=== PATIENT | female | born 1955 | race Caucasian/White ===

== ENCOUNTER 2016-08-28 03:38 | Inpatient (IN) | payer BC ==
[2016-08-28] MEDS ORDERED: morphine CARPU-JECT 4 MG/1 ML DISP.SYRIN IVPUSH ONE (03:48)
[2016-08-28] MEDS ORDERED: SODIUM CHLORIDE 1,000 ML IV STA (03:48)
[2016-08-28] MEDS ORDERED: ONDANSETRON 4 MG/2 ML VIAL IVPB ONE (03:48)
--- NOTE | 2016-08-28 03:48 | PDOC ---
[id number] No Limitations - History of Present Illness Initial Comments: 08/28/16 04:01 The patient is a 60 year old female, with no significant past past medical history, who presents to the emergency department complaining of sudden onset of abdominal pain approximately 90 minutes ago. The patient reports she was sleeping, when suddenly she was woken up by a sharp abdominal pain. She currently rates her pain as a 10/10. The patient reports no alleviating factors. The patient reports associated nausea and active vomiting. She denies any associated diarrhea or constipation. The patient denies any fever, chills, cough, headache, or dizziness. The patient denies any dysuria, hematuria, frequency, or urgency. The patient denies any recent travel or sick contacts. Allergies: None reported. Past Surgical History: Total hip replacement(left hip), abdominal hernia removal , ovaries removed Social History: Former smoker(20 cigarettes per day). Social ETOH use. Denies drug use. <Francisco Moya - Last Filed: 08/28/16 04:05> - General History Source: Patient <PhillipPorter fallon - Last Filed: 09/01/16 19:23> - General Chief Complaint: Pain Stated Complaint: ABDOMINAL PAIN Time Seen by Provider: 08/28/16 03:48 Past History <Francisco Moya - Last Filed: 08/28/16 04:05> - Immunization History Td Vaccination: Yes Immunization Up to Date: Yes - Psycho/Social/Smoking Cessation Hx Anxiety: No Suicidal Ideation: No Smoking Status: No Smoking History: Former smoker Have you smoked in the past 12 months: Yes Number of Cigarettes Smoked Daily: 20 Information on smoking cessation initiated: No Hx Alcohol Use: (social) Drug/Substance Use Hx: No <Porter Moore - Last Filed: 09/01/16 19:23> - Past Medical History Allergies/Adverse Reactions: Allergies Allergy/AdvReac Type Severity Reaction Status Date / Time coconut oil Allergy Verified 08/31/16 14:27 Home Medications: Ambulatory Orders Levofloxacin 750 mg PO DAILY #6 tablet 09/01/16 Metronidazole [Flagyl -] 500 mg PO TID #18 tablet 09/01/16 Nystatin Oral Suspension - [Nystatin Oral Susp 582546 Units/5 ML -] 500,000 units PO Q6H #28 cup 09/01/16 Review of Systems - Review of Systems Able to Perform ROS?: Yes Comments:: 08/28/16 04:01 CONSTITUTIONAL: Absent: fever, no chills, no fatigue EYES: Absent: visual changes ENT: Absent: ear pain, no sore throat CARDIOVASCULAR: Absent: chest pain, no palpitations RESPIRATORY: Absent: cough, no SOB GI: Present: +abdominal pain, +nausea, +vomiting Absent: no constipation, no diarrhea GENITOURINARY: Absent: dysuria, no frequency, no hematuria MUSCULOSKELETAL: Absent: back pain, no arthralgia, no myalgia SKIN: Absent: rash NEURO: Absent: headache <GriffinKennediomilsy - Last Filed: 08/28/16 04:05> *Physical Exam - Vital Signs Last Vital Signs Temp Pulse Resp BP Pulse Ox 97.2 F L 38 L 14 132/98 100 08/28/16 03:46 08/28/16 03:46 08/28/16 03:46 08/28/16 03:46 08/28/16 03:46 - Physical Exam Comments: 08/28/16 04:02 GENERAL: Well-appearing, well-nourished. Moderate distress. Active emesis. HEENT: Normocephalic, atraumatic. PERRL, EOM intact. CARDIOVASCULAR: Normal S1, S2. Bradycardic. Regular rhythm. PULMONARY: Clear to auscultation bilaterally. ABDOMINAL: Diffuse tenderness to the periumbilical and suprapubic regions, with mild guarding but no rebound. Soft. Non-distended. No organomegaly. Normoactive bowel sounds. EXTREMITIES: Normal ROM in all four extremities. No gross deformities. SKIN: Warm, dry. No rash NEUROLOGICAL: No focal neurological deficits. <Kennedi Moyaomarun - Last Filed: 08/28/16 04:05> - Vital Signs Last Vital Signs Temp Pulse Resp BP Pulse Ox 38 L 14 132/98 100 08/28/16 03:46 08/28/16 03:46 08/28/16 03:46 08/28/16 03:46 <Porter Moore - Last Filed: 09/01/16 19:23> Heart Score/ECG Review - ECG Impressions Comment:: 08/28/16 04:06 Vent. Rate: 50 bpm IMPRESSION: Sinus bradycardia. <Francisco Moya - Last Filed: 08/28/16 04:05> ED Treatment Course - LABORATORY CBC & Chemistry Diagram: 08/28/16 04:00 08/28/16 04:00 <Francisco Moya - Last Filed: 08/28/16 04:05> - LABORATORY CBC & Chemistry Diagram: 09/01/16 06:30 09/01/16 06:30 <Porter Moore - Last Filed: 09/01/16 19:23> Medical Decision Making - Medical Decision Making 09/01/16 19:22 Dr. Moore: The scribe's documentation has been prepared under my direction and personally reviewed by me in its entirery. I confirm that the note above accurately reflects all work, treatment, procedures, and medical decision making performed by me. <Porter Moore - Last Filed: 09/01/16 19:23> *DC/Admit/Observation/Transfer - Attestations Scribe Attestion: 08/28/16 04:04 Documentation prepared by Francisco Moya, acting as bio medical technician for Porter Moore DO. <Francisco Moya - Last Filed: 08/28/16 04:05> <Porter Moore - Last Filed: 09/01/16 19:23> Diagnosis at time of Disposition: Volvulus of ascending colon - Discharge Dispostion Disposition: HOME Condition at time of disposition: Stable - Prescriptions - Referrals
[2016-08-28] MEDS ORDERED: morphine CARPU-JECT 4 MG/1 ML DISP.SYRIN ONE (03:50)
[2016-08-28] MEDS ORDERED: ONDANSETRON 4 MG/2 ML VIAL ONE (03:50)
[2016-08-28 04:08] LABS: BASOPHIL 1.2 % (0-2.0); EOSINOPHIL 1.1 % (0-4.5); MCH 33.4 pg (25.7-33.7); MCHC 33.6 g/dl (32.0-36.0); MEAN CELL VOLUME 99.3 fl (80-96); MEAN PLT VOLUME 8.7 fl (7.5-11.1); PLATELET COUNT 289 K/MM3 (134-434); RDW 13.2 % (11.6-15.6); WHITE BLOOD COUNT 9.9 K/mm3 (4.0-10.0)
[2016-08-28] MEDS ORDERED: METOCLOPRAMIDE HCL INJECTION 10 MG/2 ML VIAL IVPUSH ONE (04:14)
[2016-08-28] MEDS ORDERED: METOCLOPRAMIDE HCL INJECTION 10 MG/2 ML VIAL ONE (04:15)
[2016-08-28 04:34] LABS: INR 0.96 (0.82-1.09); PROTHROMBIN TIME (PATIENT) 10.5 SEC (9.98-11.88)
[2016-08-28 04:45] LABS: ALBUMIN 3.6 g/dl (3.4-5.0); ALK PHOS 62 U/L (45-117); ANION GAP 11 (8-16); BILIRUBIN,TOTAL 0.3 mg/dL (0.2-1.0); CALCIUM 9.6 mg/dL (8.5-10.1); CO2 28 mmol/L (21-32); CREATININE 0.7 mg/dL (0.55-1.02); GLUCOSE,RANDOM 161 mg/dL (74-106); SGOT/AST 11 U/L (15-37); SGPT/ALT 17 U/L (12-78); TOT PROT 6.5 g/dl (6.4-8.2)
--- NOTE | 2016-08-28 07:19 | PDOC ---
*Physical Exam - Vital Signs Last Vital Signs Temp Pulse Resp BP Pulse Ox 97.2 F L 38 L 14 132/98 100 08/28/16 03:46 08/28/16 03:46 08/28/16 03:46 08/28/16 03:46 08/28/16 03:46 ED Treatment Course - LABORATORY CBC & Chemistry Diagram: 08/28/16 04:00 08/28/16 04:00 - ADDITIONAL ORDERS Additional order review: Laboratory Results 08/28/16 08/28/16 08/28/16 04:00 04:00 04:00 INR 0.96 Sodium 143 Potassium 3.7 Chloride 104 Carbon Dioxide 28 Anion Gap 11 BUN 19 H Creatinine 0.7 Creat Clearance w eGFR > 60 Random Glucose 161 H Calcium 9.6 Total Bilirubin 0.3 AST 11 L ALT 17 Alkaline Phosphatase 62 Total Protein 6.5 Albumin 3.6 Lipase 63 L Blood Type O POSITIVE Antibody Screen Negative 08/28/16 04:00 RBC 3.84 MCV 99.3 H MCHC 33.6 RDW 13.2 MPV 8.7 Neutrophils % 55.0 Lymphocytes % 36.8 Monocytes % 5.9 Eosinophils % 1.1 Basophils % 1.2 - Medications Given in the ED: ED Medications Discontinued Medications Generic Name Dose Route Start Last Admin Trade Name Freq PRN Reason Stop Dose Admin Sodium Chloride 1,000 mls @ 1,000 mls/hr 08/28/16 03:48 08/28/16 04:01 Normal Saline - IV 08/28/16 04:47 1,000 mls/hr ASDIR STA Administration Metoclopramide HCl 10 mg 08/28/16 04:14 08/28/16 04:17 Reglan Injection - IVPUSH 08/28/16 04:15 10 mg ONCE ONE Administration Morphine Sulfate 4 mg 08/28/16 03:48 08/28/16 04:01 Morphine Injection - IVPUSH 08/28/16 03:49 4 mg ONCE ONE Administration Ondansetron HCl 8 mg 08/28/16 03:48 08/28/16 04:01 Zofran Injection IVPB 08/28/16 03:49 8 mg ONCE ONE Administration Medical Decision Making - Medical Decision Making 08/28/16 07:11 I received this patient on sign out She presente 08/28/16 07:19 Received call from imaging internal medicine nurse practitioner (Dr. Gallegos) Pt has a volvulous of ascending colon the cecum and prox ascending colon thick and edematous vascular compromise ? Ischemic bowel 08/28/16 07:27 Pt re assessed States she feels much better States that her tenderness is actually in the left upper abdomen Currently feels nauseous still but pain has largely improved 08/28/16 08:[address] Taveras Admit to hospitalist NPO Repeat abd x ray *DC/Admit/Observation/Transfer Diagnosis at time of Disposition: Volvulus of ascending colon - Discharge Dispostion Condition at time of disposition: Stable Admit: Yes - Referrals Referrals: Elvia Ledesma [Primary Care Provider] - - Patient Instructions - Post Discharge Activity
[2016-08-28 08:01] LABS: URINE APPEARANCE CLEAR; URINE BILIRUBIN NEGATIVE (NEGATIVE); URINE BLOOD NEGATIVE (NEGATIVE); URINE COLOR LTYELLOW; URINE GLUCOSE (UA) NEGATIVE (NEGATIVE); URINE KETONE NEGATIVE (NEGATIVE); URINE NITRITE NEGATIVE (NEGATIVE); URINE PROTEIN NEGATIVE (NEGATIVE); URINE UROBILINOGEN NEGATIVE E.U./dl (0.2-1.0)
[2016-08-28 08:05] LABS: URINE LEUK ESTERASE 1+ (NEGATIVE); URINE MUCUS RARE; URINE RBC 2 /hpf (0-3); URINE WBC 2 /hpf (3-5)
[2016-08-28] MEDS ORDERED: DEXTROSE 5%-0.45% SALINE 1,000 ML IV SCH (12:00)
[2016-08-28 13:00] VITALS: BMI 18.8
--- NOTE | 2016-08-28 13:32 | PN ---
Teaching Attending Note Name of Resident: Giovana Collazo ATTENDING PHYSICIAN STATEMENT I saw and evaluated the patient. I reviewed the resident's note and discussed the case with the resident. I agree with the resident's findings and plan as documented. SUBJECTIVE:60yo F with PMH laprascopic oophorectomy and hernia repair c/o sudden onset of epigastric pain that woke her up from sleep at 0400. was "strong " constant pain radiating down her entire abdomen. assoc with distention and her abdomen felt firm. she attempted to have BM as she thought would relieve her pain and passed a very small firm BM. with no resolution in her pain. upon arrival to the ER with pain medications her pain slowly resolved and her distention and hard abdomen also resolved. pt feels completely asymptomatic at this time. no similar episodes in the past. takes no medications. denies OTC. any symptoms yesterday. had colonscopy 5 years ago and normal per her. OBJECTIVE: Last Vital Signs Temp Pulse Resp BP Pulse Ox 98.5 F 71 16 94/58 98 08/28/16 12:53 08/28/16 12:53 08/28/16 12:53 08/28/16 12:53 08/28/16 12:53 General NAD CV S1 S2 RRR no murmur/rub/gallop Lungs CTA B/L no wheezing/rales/rhonchi Abdomen soft NT/ND hypoactive BS. no rebound or guarding. dull on percussion ASSESSMENT AND PLAN: 60yo F with no PMH presented to the ER and was admitted for further evaluation of their emergent condition 1. Volvulus- clinically improved. lactic acid WNL. abdomen is now benign on exam. awaiting official read on CT which shows largely distended abdomen and multiple distended bowel loops. thickened colonic wall. AXR also done showing distended abdomen with air fluid level, contrast appreciated in the rectum on my read. awaiting official read. NPO, pain and nausea control. low dose IVF while IVF. surgery consulted. likely no emergent intervention needed at this time. serial abdominal exams. will likely require repeat colonoscopy to further evaluate etiolgy. can likely be done as outpatient. 2. DVT ppx- EAM,
--- NOTE | 2016-08-28 16:34 | EKG ---
Test Reason : Blood Pressure : / mmHG Vent. Rate : 050 BPM Atrial Rate : 050 BPM P-R Int : 174 ms QRS Dur : 114 ms QT Int : 482 ms P-R-T Axes : 013 076 046 degrees QTc Int : 439 ms SINUS BRADYCARDIA OTHERWISE NORMAL ECG NO PREVIOUS ECGS AVAILABLE Confirmed by MD BHAVNA, TOMMY ([id number]) on 08/28/2016 4:34:37 PM Referred By: Confirmed By:TOMMY HUGGINS MD
--- NOTE | 2016-08-28 16:39 | HP ---
CHIEF COMPLAINT: PCP: Dr. Trice Phillips HISTORY OF PRESENT ILLNESS: Abdominal Pain 60YF w/ significant PMH of laprascopic oophorectomy and hernia repair c/o sudden onset of epigastric pain that woke her up from sleep. patient reports feeling like her normal and suddenly progressive constant epigastric 10/10 pain radiating diffusely to the rest of he Abdomen. after pain started patient reports have a soft non bloody BM which decreased the pain and pain returned stronger than before which prompted her to go to ED. patient reported rigid abdominal muscle and distended abdomen. patient reports had Nausea and one episode of non bloody non bilious vomit which contained food product. patient reports pain last 2.5 hours where she where it subsided with one time dose of meds received in ED. patient reports not having a BM for two days prior. patient reports eating out the night prior chicken and rice. patient has never had similar episodes in the past. no one else had similar symptoms. no sick contact. no recent illnesses. She denies fever, chills, night sweats, diaphoresis, generalized weakness weight loss, or weight gain She denies chest pain, shortness of breath, cough She denies diarrhea, dysuria, hematuria, urinary frequency and urgency, flank pain, vaginal discharge/vaginal bleeding, To note: colonoscopy 5 years ago unremarkable per patient. -I reiterated and discussed the risks and benefits of possible differential diagnosis treatment and plan to patient and her . also informed patient she has a possible cardiomegly and infiltrate on CXR. I discussed imaging studies and lab findings with the patient.I answered all the patients and . no emergent intervention needed at this time. ER course was notable for: (1)CBC, CMP, lactic acid, (2)CT abd, xr abd. (3)ED attending reviewed Case with Dr. Shabazz, Dr. 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 Family Disease History: Heart Disease: Father ( [place] 65, head trauma seizures ), Mother ( [place] age 73), Other: Father Other Family History: cousin with pancreatic cancer Allergies No Known Allergies Allergy (Verified 08/28/16 03:45) HOME MEDICATIONS: Home Medications Medication Instructions Recorded NK [No Known Home Medication] 08/28/16 REVIEW OF SYSTEMS CONSTITUTIONAL: Absent: fever, chills, diaphoresis, generalized weakness, malaise, loss of appetite, weight change HEENT: Absent: rhinorrhea, nasal congestion, throat pain, throat swelling, difficulty swallowing, mouth swelling, ear pain, eye pain, visual changes CARDIOVASCULAR: Absent: chest pain, syncope, palpitations, irregular heart rate, lightheadedness , peripheral edema RESPIRATORY: Absent: cough, shortness of breath, dyspnea with exertion, orthopnea, wheezing, stridor, hemoptysis GASTROINTESTINAL: abdominal pain, abdominal distension, nausea, vomiting, Absent: diarrhea, constipation, melena, hematochezia GENITOURINARY: Absent: dysuria, frequency, urgency, hesitancy, hematuria, flank pain, genital pain MUSCULOSKELETAL: Absent: myalgia, arthralgia, joint swelling, back pain, neck pain SKIN: Absent: rash, itching, pallor HEMATOLOGIC/IMMUNOLOGIC: Absent: easy bleeding, easy bruising, lymphadenopathy, frequent infections ENDOCRINE: Absent: unexplained weight gain, unexplained weight loss, heat intolerance, cold intolerance NEUROLOGIC: Absent: headache, focal weakness or paresthesias, dizziness, unsteady gait, seizure, mental status changes, bladder or bowel incontinence PSYCHIATRIC: Absent: anxiety, depression, suicidal or homicidal ideation, hallucinations. PHYSICAL EXAMINATION Vital Signs - 24 hr 08/28/16 08/28/16 08/28/16 09:04 12:53 15:48 Temperature 98.5 F 98.9 F Pulse Rate 71 81 Pulse Rate [ 105 H Apical] Respiratory 18 16 18 Rate Blood Pressure 94/58 96/62 Blood Pressure 158/96 [Arm] O2 Sat by Pulse 97 98 Oximetry (%) GENERAL: Awake, alert, and fully oriented, in no acute distress. sitting confortably asking for food and water. HEAD: Normal with no signs of trauma. EYES: extraocular movements intact, sclera anicteric, conjunctiva clear. No lid lag. EARS, NOSE, THROAT: Ears normal, nares patent, oropharynx clear without exudates. Dry mucous membranes. NECK: Normal range of motion, supple without lymphadenopathy, JVD, or masses. LUNGS: Breath sounds equal, clear to auscultation bilaterally. No wheezes, and no crackles. No accessory muscle use. HEART: Regular rate and rhythm, normal S1 and S2 without murmur, rub or gallop. ABDOMEN: Soft, nontender, not distended, normoactive bowel sounds, no guarding, no rebound, no masses. No hepatomegaly or splenomegaly. MUSCULOSKELETAL: Normal range of motion at all joints. No bony deformities or tenderness. No CVA tenderness. LOWER EXTREMITIES: 2+ pulses, warm, well-perfused. No calf tenderness. No peripheral edema. NEUROLOGICAL: no facial droop or focal neurological deficit, Normal speech. PSYCHIATRIC: Cooperative. Good eye contact. Appropriate mood and affect. SKIN: Warm, dry, normal turgor, no rashes or lesions noted. Active Medications Generic Name Dose Route Start Last Admin Trade Name Freq PRN Reason Stop Dose Admin Ampicillin Sodium/Sulbactam 100 mls @ 200 mls/hr 08/28/16 18:00 Sodium 1.5 gm/ Sodium Chloride IVPB Q8H-IV JAYLEN Metronidazole 100 mls @ 100 mls/hr 08/28/16 18:00 08/28/16 18:17 Flagyl 500mg Premixed Ivpb - IVPB 100 mls/hr Q8H-IV JAYLEN Administration Dextrose/Sodium Chloride 1,000 mls @ 125 mls/hr 08/28/16 17:45 08/28/16 18:17 D5-1/2ns - IV 125 mls/hr ASDIR JAYLEN Administration Levofloxacin 100 mls @ 100 mls/hr 08/28/16 18:00 08/28/16 18:17 Levaquin 500 Mg Premixed Ivpb - IVPB 08/28/16 18:59 100 mls/hr ONCE ONE Administration CT abd: Evaluation of the lung bases demonstrates a small area of consolidation within the right lower lobe. The left lung base is clear. There is thickening and irregularity of the descending colon and cecum. The remainder of the colon is uninvolved with this process and does contain air and stool. The etiology of this appearance is uncertain and may be related to a volvulus near the hepatic flexure with vascular compromise of the right colon. Clinical correlation and colonoscopic follow-up is recommended. The possibility of focal colitis cannot be excluded. The liver is normal in size. It is hypodense in texture consistent with diffuse fatty infiltration. No mass lesions are identified within the liver. The spleen, pancreas, adrenal glands and kidneys demonstrate no significant abnormalities. There is no evidence of intra- abdominal or retroperitoneal lymphadenopathy or fluid collections. Examination of the pelvis demonstrates is limited due to artifact from the patient's right hip prosthesis. There is no evidence of pelvic masses, fluid collections or lymphadenopathy. The uterus is retroverted.IMPRESSION: 1. Thickening and irregularity of the right colon which may be related to a volvulus near the hepatic flexure. Clinical correlation and follow-up recommended. 2. No evidence of SBO. Abdomen XR: 2 views. Cardiomegaly. Contrast is seen in the stomach with air- fluid level at the fundus of the stomach. No evidence of distended loops of small bowel or colon. Fecal debris is observed in the left colon. Nondilated opacified loops of small bowel are noted in pelvis. ASSESSMENT/PLAN: 60YF w/ significant PMH of laprascopic oophorectomy and hernia repair presents with sudden onset of epigastric pain that woke her up from sleep. Acute Abdominal pain likely Ischemic bowel vs Volvulus Right colon. currently asymptomatic and physical exam normal BS, soft, NT, non tympanic, (on bowel rest ), Guaiac Positive (soft stool). Inlight of history and clinically presentation patient is at risk of progression to gangrene and perforation as well as sepsis. Rectal Exam: Yes: Guaiac Positive (soft stool), Other (no masses). Discused case with Dr. Hankins, on CT questionable volvules, as it may be less likely as to rotate at Right colon. it is more probable to have an ischemic colitis in the setting of patient age, long smoking history, and clinical picture. -serial abdominal exams. -blood cultures, -Levofloxacin IVPB -Metronidazole IVPB -Ampicillin Sodium/Sulbactam IPB -gut rest with liquids as per GI attending. -IVF -possible colonospy 08/31 -surgery consulted. no emergent intervention needed at this time. Infiltrate on CXR: no sings of infection, asymptomatic. will continue to monitor vital signs, breathing, physical exam, CBC am Cardiomegaly: stable currently asymptomatic Smoking cessation: stable patient reports she is on a stage 2 and uses of nicotine patch 7mg TD , and she currently does not have the urge to smoke and will not be needing a patch. FEN DNS clear liquid as tolerated monitor and replete electrolytes as needed. DVT ppx- EAM, SCD . Visit type - Emergency Visit Emergency Visit: Yes ED Registration Date: 08/28/16 Care time: The patient presented to the Emergency Department on the above date and was hospitalized for further evaluation of their emergent condition. - New Patient This patient is new to me today: Yes Date on this admission: 08/28/16 - Critical Care Critical Care patient: No
--- NOTE | 2016-08-28 17:12 | CON.GI ---
Consult Consult Specialty:: Gastroenterology Referred by:: Dr Antony Reason for Consultation:: Abdominal pain - History of Present Illness Chief Complaint: Abdominal pain and vomiting History of Present Illness: 60W was awoken by sudden onset of very severe generalized abdominal pain associated with bloating and vomiting of her dinner. She did have a nonbloody diarrhea BM with the onset of pain and since then. Her pain was relieved after analgesia in the ER and she now has a low grade dull ache. No further vomiting. No chills. She has never had this pain before. She had a normal colonoscopy with Dr Bhat at [facility] about 7 tears ago. She has no recent foreign travel or exposure to antibiotics. She moves her bowels regularly and denies any recent narowing of stool caliber. She did have a single bout with pancreatitis remotely and denies that it was related to alcohol or gallstones. Her PMD is at [facility]. She quit smoking in 06/19. No UGI problems. She has expressed that she wants to leave and go to [facility] for her care. - History Source History Provided By: Patient Limitations to Obtaining History: No Limitations - Past Medical History Gastrointestinal: Yes: Pancreatitis (remotely ? etiology), Other (Normal colonoscopy 7 years ago. Right femoral hernia repair) Reproductive: Yes: Other (Successfull IVF. 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 ?) - Past Surgical History Past Surgical History: Yes: Colonoscopy, Hernia Repair (right femoral hernia repair), Joint Replacement (Right hip), Nephrectomy, Oopherectomy (laparoscopic bilateral ovariectomies for cysts) - Alcohol/Substance Use Hx Alcohol Use: Yes (social- 2 galsses of wine nighthly) - Smoking History Smoking history: Former smoker Have you smoked in the past 12 months: Yes Aproximately how many cigarettes per day: 20 If you are a former smoker, when did you quit?: JUN 2016 - Social History Usual Living Arrangement: With Spouse ADL: Independent 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 Place of : [facility] History of Recent Travel: No Home Medications - Allergies Allergies/Adverse Reactions: Allergies Allergy/AdvReac Type Severity Reaction Status Date / Time No Known Allergies Allergy Verified 08/28/16 03:45 - Home Medications Home Medications: Ambulatory Orders NK [No Known Home Medication] 08/28/16 Family Disease History - Family Disease History Family Disease History: Heart Disease: Father ( [place] age 65, head trauma seizures ), Mother ( [place] age 73), Other: Father Other Family History: cousin with pancreatic cancer Review of Systems - Review of Systems Constitutional: reports: No Symptoms Eyes: reports: No Symptoms HENT: reports: No Symptoms Neck: reports: No Symptoms Cardiovascular: reports: No Symptoms Respiratory: reports: No Symptoms Gastrointestinal: reports: No Symptoms Neurological: reports: No Symptoms Physical Exam-GI Vital Signs: Vital Signs Temperature 98.9 F 08/28/16 15:48 Pulse Rate 81 08/28/16 15:48 Respiratory Rate 18 08/28/16 15:48 Blood Pressure 96/62 08/28/16 15:48 O2 Sat by Pulse Oximetry (%) 98 08/28/16 12:53 CBC,CMP WBC 9.9 K/mm3 (4.0-10.0) 08/28/16 04:00 RBC 3.84 M/mm3 (3.60-5.2) 08/28/16 04:00 Hgb 12.8 GM/dL (10.7-15.3) 08/28/16 04:00 Hct 38.1 % (32.4-45.2) 08/28/16 04:00 MCV 99.3 fl (80-96) H 08/28/16 04:00 MCHC 33.6 g/dl (32.0-36.0) 08/28/16 04:00 RDW 13.2 % (11.6-15.6) 08/28/16 04:00 Plt Count 289 K/MM3 (134-434) 08/28/16 04:00 MPV 8.7 fl (7.5-11.1) 08/28/16 04:00 Neutrophils % 55.0 % (42.8-82.8) 08/28/16 04:00 Lymphocytes % 36.8 % (8-40) 08/28/16 04:00 Monocytes % 5.9 % (3.8-10.2) 08/28/16 04:00 Eosinophils % 1.1 % (0-4.5) 08/28/16 04:00 Basophils % 1.2 % (0-2.0) 08/28/16 04:00 Sodium 143 mmol/L (136-145) 08/28/16 04:00 Potassium 3.7 mmol/L (3.5-5.1) 08/28/16 04:00 Chloride 104 mmol/L (98-107) 08/28/16 04:00 Carbon Dioxide 28 mmol/L (21-32) 08/28/16 04:00 Anion Gap 11 (8-16) 08/28/16 04:00 BUN 19 mg/dL (7-18) H 08/28/16 04:00 Creatinine 0.7 mg/dL (0.55-1.02) 08/28/16 04:00 Creat Clearance w eGFR > 60 (>60) 08/28/16 04:00 Random Glucose 161 mg/dL (74-106) H 08/28/16 04:00 Lactic Acid 1.421 mmol/L (0.4-2.0) 08/28/16 07:45 Calcium 9.6 mg/dL (8.5-10.1) 08/28/16 04:00 Total Bilirubin 0.3 mg/dL (0.2-1.0) 08/28/16 04:00 AST 11 U/L (15-37) L 08/28/16 04:00 ALT 17 U/L (12-78) 08/28/16 04:00 Alkaline Phosphatase 62 U/L (45-117) 08/28/16 04:00 Total Protein 6.5 g/dl (6.4-8.2) 08/28/16 04:00 Albumin 3.6 g/dl (3.4-5.0) 08/28/16 04:00 Lipase 63 U/L (73-393) L 08/28/16 04:00 Current Medications Generic Name Dose Route Start Last Admin Trade Name Freq PRN Reason Stop Dose Admin Dextrose/Sodium Chloride 1,000 mls @ 83 mls/hr 08/28/16 12:00 08/28/16 15:58 D5-1/2ns - IV 83 mls/hr ASDIR JAYLEN Administration Constitutional: Yes: Anxious Eyes: Yes: Conjunctiva Clear HENT: Yes: Normocephalic Neck: Yes: Supple Cardiovascular: Yes: Regular Rate and Rhythm Respiratory: Yes: CTA Bilaterally Gastrointestinal Inspection: Yes: Scars (heale laparoscopic and right inguinal area incisions) ...Auscultate: Yes: Normoactive Bowel Sounds ...Palpate: Yes: Soft, Other (nontender at present) ...Percussion: Yes: Tympanitic ...Rectal Exam: Yes: Guaiac Positive (soft stool), Other (no masses) Edema: No Labs: INR, PTT INR 0.96 (0.82-1.09) 08/28/16 04:00 Imaging - Results Cat Scan: Image Reviewed Assessment/Plan I believe that Blessing has ischemic colitis or the right colon which portends a high risk than eft sided ischemic colitis. I have explained to her that she is at risk of progression to gangrene and perforation as well as sepsis from translocation of gut bacteria through a compromised bowel/ loss of mucosal integrity. I have advised hospitalization for close observation, blood cultures , antibiotics and gut rest with liquids. If her situation permits then a colonoscopy will be undertaken on 08/31. I have discussed colonoscopy in detail with Blessing and her and made them aware of the risk for perforation and hemorrhage and the need for a Golytely bowel prep. She has signed an informed consent for colonoscopy. A general surgeon has already been consulted. I discussed th case with the resident.
[2016-08-28] MEDS ORDERED: LEVOFLOXACIN 500 MG IVPB 100 ML IVPB ONE (18:00)
[2016-08-28] MEDS ORDERED: AMPICILLIN NA/SULBACTAM NA 1.5 GM/100 ML PRE-DOCKED IVPB ONE (18:00)
[2016-08-28] MEDS: METRONIDAZOLE 500 MG PREMIXED 100 ML IVPB SCH (18:17)
[2016-08-28] MEDS: DEXTROSE 5%-0.45% SALINE 1,000 ML IV SCH (18:17)
[2016-08-28] MEDS: ACETAMINOPHEN 650 MG/20.3 ML ORAL SOLUTION (CUPS) PO PRN (21:40)
[2016-08-29] MEDS: METRONIDAZOLE 500 MG PREMIXED 100 ML IVPB SCH ×3 (01:49→18:19)
[2016-08-29] MEDS: DEXTROSE 5%-0.45% SALINE 1,000 ML IV SCH ×3 (01:51→18:16)
[2016-08-29] MEDS: ACETAMINOPHEN 650 MG/20.3 ML ORAL SOLUTION (CUPS) PO PRN ×2 (06:31→19:08)
[2016-08-29 08:36] LABS: BASOPHIL 0.4 % (0-2.0); EOSINOPHIL 0.2 % (0-4.5); MCH 33.5 pg (25.7-33.7); MCHC 33.8 g/dl (32.0-36.0); MEAN CELL VOLUME 99.1 fl (80-96); NEUTROPHILS 81.6 % (42.8-82.8); PLATELET COUNT 215 K/MM3 (134-434); RDW 13.4 % (11.6-15.6)
[2016-08-29 08:53] LABS: INR 1.25 (0.82-1.09); PROTHROMBIN TIME (PATIENT) 13.8 SEC (9.98-11.88)
[2016-08-29 09:07] LABS: AMYLASE 30 U/L (25-115); ANION GAP 7 (8-16); CALCIUM 8.4 mg/dL (8.5-10.1); CO2 26 mmol/L (21-32); GLUCOSE,RANDOM 137 mg/dL (74-106); SGOT/AST 9 U/L (15-37); SGPT/ALT 14 U/L (12-78)
[2016-08-29 09:09] LABS: ALK PHOS 56 U/L (45-117); BILIRUBIN,TOTAL 0.5 mg/dL (0.2-1.0); C-REACTIVE PROTEIN 6.9 MG/DL (0.00-0.3); CREATININE 0.6 mg/dL (0.55-1.02); TOT PROT 5.5 g/dl (6.4-8.2)
--- NOTE | 2016-08-29 11:17 | CONSULT ---
Consult Consult Specialty:: colorectal surgery Reason for Consultation:: abd pain - History of Present Illness Chief Complaint: abd pain History of Present Illness: Pt is a 60F with acute onset severe abd pain Kalen AM. Came into ER and CT shows thickened R colon and mentions possibly caused by a volvulus. Patient currently has only minimally soreness in abd. +BM. Patient now with fever to 101 and wbc increased to 13. Patient never had anything like this prior. Last colonoscopy 6y ago wnl. - History Source History Provided By: Patient - Past Medical History Gastrointestinal: Yes: Pancreatitis (remotely ? etiology), Other (Normal colonoscopy 7 years ago. 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 ?) - Past Surgical History Past Surgical History: Yes: Colonoscopy, Hernia Repair (right femoral hernia repair), Joint Replacement (Right hip), Nephrectomy, Oopherectomy (laparoscopic bilateral ovariectomies for cysts) - Alcohol/Substance Use Hx Alcohol Use: Yes (social- 2 galsses of wine nighthly) - Smoking History Smoking history: Former smoker Have you smoked in the past 12 months: Yes Aproximately how many cigarettes per day: 20 If you are a former smoker, when did you quit?: JUN 2016 - Social History Usual Living Arrangement: With Spouse ADL: Independent 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 denies: Chills Eyes: denies: Blind Spots, Blurred Vision HENT: denies: Difficult Swallowing, Ear Discharge, Hearing Loss Neck: denies: Decreased ROM, Pain on Movement Cardiovascular: denies: Chest Pain, Edema Respiratory: denies: Cough, Exercise Intolerance Gastrointestinal: reports: Abdominal Pain, Diarrhea Genitourinary: denies: Discharge, Dysuria Breasts: denies: Breast Implants, Discharge from Nipple Musculoskeletal: denies: Back Pain, Crepitus Integumentary: denies: Blister, Bruising Neurological: denies: Change in LOC, Change in Speech Endocrine: denies: Excessive Sweating, Flushing Hematology/Lymphatic: denies: Easily Bruised, Excessive Bleeding Psychiatric: denies: Altered Sleep Pattern, Anxiety Physical Exam Vital Signs: Vital Signs Temperature 101.3 F H 08/29/16 06:00 Pulse Rate 104 H 08/29/16 06:00 Respiratory Rate 18 08/29/16 06:00 Blood Pressure 110/65 08/29/16 06:00 O2 Sat by Pulse Oximetry (%) 98 08/28/16 21:00 Constitutional: Yes: No Distress, Calm Eyes: Yes: Conjunctiva Clear, EOM Intact HENT: Yes: Atraumatic, Normocephalic Neck: Yes: Supple, Trachea Midline Cardiovascular: Yes: Regular Rate and Rhythm Respiratory: Yes: Regular Gastrointestinal: Yes: Soft. No: Distention, Tenderness ...Rectal Exam: Yes: Deferred Renal/: No: CVA Tenderness - Left, CVA Tenderness - Right Breast(s): No: Nipple Inversion, Skin Changes Musculoskeletal: No: Joint Stiffness, Joint Swelling Extremities: No: Calf Tenderness, Erythema Integumentary: No: Erythema, Rash Neurological: Yes: Alert, Oriented Psychiatric: Yes: Alert, Oriented Labs: CBC, BMP 08/29/16 07:45 08/29/16 07:45 Imaging - Results X-ray: Image Reviewed Cat Scan: Report Reviewed, Image Reviewed Problem List - Problems (1) Volvulus of ascending colon Assessment/Plan: thickening of R colon on CT. no obvious volvulus observed. +fever today with worsening leukocytosis. agree with colonoscopy at some point. cont abx. if abd pain returns like before please get stat non contrast abd/pelvis CT to confirm possibilty of volvulus. for now will treat as enterocolitis though some elements of history do suggest volvulus. Code(s): K56.2 - VOLVULUS
--- NOTE | 2016-08-29 17:02 | PN ---
Progress Note (short form) - Note Progress Note: c/o generalized fatigue which she contributes to her hunger. had 3 episodes of loose BM, negative for BRBPR or melena. passing flatus and belching. states her distention has resolved. denies CP, SOB,fever, chills, N/V/C. family hx of cancer on in a cousin (pancreatic) Current Medications Generic Name Dose Route Start Last Admin Trade Name Freq PRN Reason Stop Dose Admin Acetaminophen 650 mg 08/28/16 21:13 08/29/16 06:31 Tylenol Oral Solution - PO 650 mg Q4H PRN Administration FEVER OR PAIN Ampicillin Sodium/Sulbactam 100 mls @ 200 mls/hr 08/28/16 18:00 Sodium 1.5 gm/ Sodium Chloride IVPB Q8H-IV JAYLEN Metronidazole 100 mls @ 100 mls/hr 08/28/16 18:00 08/29/16 10:43 Flagyl 500mg Premixed Ivpb - IVPB 100 mls/hr Q8H-IV JAYLEN Administration Dextrose/Sodium Chloride 1,000 mls @ 125 mls/hr 08/28/16 17:45 08/29/16 14:56 D5-1/2ns - IV 125 mls/hr ASDIR JAYLEN Administration Last Vital Signs Temp Pulse Resp BP Pulse Ox 99.3 F 85 18 113/65 98 08/29/16 15:19 08/29/16 15:19 08/29/16 15:19 08/29/16 15:19 08/29/16 09:00 General NAD CV S1 S2 RRR no murmur/rub/gallop Lungs CTA B/L no wheezing/rales/rhonchi Abdomen soft NT +distention normoactive BS. no rebound or guarding. CBCD WBC 13.0 K/mm3 (4.0-10.0) H D 08/29/16 07:45 RBC 3.48 M/mm3 (3.60-5.2) L 08/29/16 07:45 Hgb 11.7 GM/dL (10.7-15.3) 08/29/16 07:45 Hct 34.5 % (32.4-45.2) 08/29/16 07:45 MCV 99.1 fl (80-96) H 08/29/16 07:45 MCHC 33.8 g/dl (32.0-36.0) 08/29/16 07:45 RDW 13.4 % (11.6-15.6) 08/29/16 07:45 Plt Count 215 K/MM3 (134-434) D 08/29/16 07:45 MPV 9.0 fl (7.5-11.1) 08/29/16 07:45 CMP Sodium 143 mmol/L (136-145) 08/29/16 07:45 Potassium 3.7 mmol/L (3.5-5.1) 08/29/16 07:45 Chloride 110 mmol/L (98-107) H 08/29/16 07:45 Carbon Dioxide 26 mmol/L (21-32) 08/29/16 07:45 Anion Gap 7 (8-16) L 08/29/16 07:45 BUN 7 mg/dL (7-18) D 08/29/16 07:45 Creatinine 0.6 mg/dL (0.55-1.02) 08/29/16 07:45 Creat Clearance w eGFR > 60 (>60) 08/29/16 07:45 Calcium 8.4 mg/dL (8.5-10.1) L 08/29/16 07:45 Total Bilirubin 0.5 mg/dL (0.2-1.0) D 08/29/16 07:45 AST 9 U/L (15-37) L 08/29/16 07:45 ALT 14 U/L (12-78) 08/29/16 07:45 Alkaline Phosphatase 56 U/L (45-117) 08/29/16 07:45 Total Protein 5.5 g/dl (6.4-8.2) L 08/29/16 07:45 Albumin 3.0 g/dl (3.4-5.0) L 08/29/16 07:45 ASSESSMENT AND PLAN: 60yo F with no PMH presented to the ER and was admitted for further evaluation of their emergent condition 1. Volvulus-AXR reviwed and appears to have significant distention of the bowel. clinically appears well. Gi believes to be some component of ischemia but lactic acid is WNL and no blood in BM. Tm 101.3 with leukocytosis. started on Flagyl and LEvaquin day 2, Cx sent. plan for colonoscopy on Wednesday. surgery and GI on board. any change in clinical presentation will warrant emergent CT abdomen. pain and nausea control. send stool Cx to evaluate for cdiff 2. DVT ppx- EAM, Visit type - Emergency Visit Emergency Visit: Yes ED Registration Date: 08/28/16 Care time: The patient presented to the Emergency Department on the above date and was hospitalized for further evaluation of their emergent condition. - New Patient This patient is new to me today: No - Critical Care Critical Care patient: No - Discharge Referral Referred to [facility] Med P.C.: No
--- NOTE | 2016-08-29 17:50 | PN ---
GI Progress Note Subjective: GASTROENTEROLOGY NO PAIN JUST GAS HAD A FEW BOUTS OF DIARRHEA TODAY, NO BLOOD SPIKED TEMP TO 101.3 AND ELEVATED WBC TODAY - Objective Vital Signs: Vital Signs Temperature 99.3 F 08/29/16 15:19 Pulse Rate 85 08/29/16 15:19 Respiratory Rate 18 08/29/16 15:19 Blood Pressure 113/65 08/29/16 15:19 O2 Sat by Pulse Oximetry (%) 98 08/29/16 09:00 Constitutional: Well Nourished Eyes: Yes: Conjunctiva Clear HENT: Yes: Atraumatic Neck: Yes: Supple Cardiovascular: Yes: Regular Rate and Rhythm Respiratory: Yes: Regular Gastrointestinal Inspection: Yes: WNL ...Auscultate: Yes: Normoactive Bowel Sounds ...Palpate: Yes: Soft, Other (MILD SORENESS BUT NO PAIN) Musculoskeletal: Yes: WNL Extremities: Yes: WNL Neurological: Yes: WNL, Alert, Oriented Psychiatric: Yes: Alert, Oriented Labs: CBC, BMP 08/29/16 07:45 08/29/16 07:45 INR, PTT INR 1.25 (0.82-1.09) H D 08/29/16 07:45 Problem List - Problems (1) Abnormal CT scan, colon Assessment/Plan: THE HISTORY BEST FITS VOLVULUS, SHE SEEMS IMPROVED BU TODAY'S CHANGES ARE A BIT CONCERNING. CONTINUE IV LEV AND FLAGYL FOLLOW LABS COLONOSCOPY AT SOME POINT TO EXAM THE RIGHT COLON. Code(s): R93.3 - ABNORMAL FINDINGS ON DX IMAGING OF PRT DIGESTIVE TRACT (2) Volvulus of ascending colon Code(s): K56.2 - VOLVULUS (3) Enterocolitis Code(s): K52.9 - NONINFECTIVE GASTROENTERITIS AND COLITIS, UNSPECIFIED
[2016-08-29] MEDS: AMPICILLIN NA/SULBACTAM NA 1.5 GM in SODIUM CHLORIDE 100 ML IVPB SCH ×2 (18:20→18:21)
[2016-08-29] MEDS: LEVOFLOXACIN 500 MG IVPB 100 ML IVPB SCH (18:20)
[2016-08-30] MEDS: METRONIDAZOLE 500 MG PREMIXED 100 ML IVPB SCH ×3 (01:09→17:03)
[2016-08-30] MEDS: DEXTROSE 5%-0.45% SALINE 1,000 ML IV SCH ×2 (01:09→10:50)
[2016-08-30] MEDS: ACETAMINOPHEN 650 MG/20.3 ML ORAL SOLUTION (CUPS) PO PRN ×2 (02:18→10:08)
[2016-08-30 08:55] LABS: BASOPHIL 0.3 % (0-2.0); EOSINOPHIL 0.5 % (0-4.5); MCH 33.8 pg (25.7-33.7); MCHC 34.1 g/dl (32.0-36.0); MEAN CELL VOLUME 99.1 fl (80-96); NEUTROPHILS 84.6 % (42.8-82.8); PLATELET COUNT 223 K/MM3 (134-434); RDW 13.3 % (11.6-15.6); WHITE BLOOD COUNT 15.6 K/mm3 (4.0-10.0)
[2016-08-30 09:10] LABS: ALBUMIN 2.9 g/dl (3.4-5.0); AMYLASE 18 U/L (25-115); ANION GAP 5 (8-16); C-REACTIVE PROTEIN 11.2 MG/DL (0.00-0.3); CALCIUM 8.6 mg/dL (8.5-10.1); CO2 29 mmol/L (21-32); CREATININE 0.5 mg/dL (0.55-1.02); GLUCOSE,RANDOM 112 mg/dL (74-106); SGOT/AST 6 U/L (15-37); SGPT/ALT 14 U/L (12-78)
[2016-08-30 09:11] LABS: ALK PHOS 61 U/L (45-117); BILIRUBIN,TOTAL 0.7 mg/dL (0.2-1.0); TOT PROT 5.5 g/dl (6.4-8.2)
--- NOTE | 2016-08-30 09:36 | PN ---
Progress Note, Physician Chief Complaint: abd discomfort History of Present Illness: pt still with abd soreness and gas pains. alot of flatus. +gurgling. +3 loose BM yesterday. No N/V. appetite good. low grade temps now. wbc increased again to 15. - Current Medication List Current Medications: Active Medications Acetaminophen (Tylenol Oral Solution -) 650 mg PO Q4H PRN PRN Reason: FEVER OR PAIN Last Admin: 08/30/16 02:18 Dose: 650 mg Metronidazole (Flagyl 500mg Premixed Ivpb -) 100 mls @ 100 mls/hr IVPB Q8H-IV JAYLEN Last Admin: 08/30/16 09:07 Dose: 100 mls/hr Dextrose/Sodium Chloride (D5-1/2ns -) 1,000 mls @ 125 mls/hr IV ASDIR JAYLEN Last Admin: 08/30/16 01:09 Dose: 125 mls/hr Levofloxacin (Levaquin 500 Mg Premixed Ivpb -) 100 mls @ 100 mls/hr IVPB DAILY [facility] Last Admin: 08/29/16 18:20 Dose: 100 mls/hr - Objective Vital Signs: Vital Signs Temperature 99.7 F H 08/30/16 06:00 Pulse Rate 84 08/30/16 06:00 Respiratory Rate 18 08/30/16 06:00 Blood Pressure 100/59 08/30/16 06:00 O2 Sat by Pulse Oximetry (%) 96 08/29/16 21:00 Constitutional: Yes: No Distress, Calm Eyes: Yes: Conjunctiva Clear, EOM Intact HENT: Yes: Atraumatic, Normocephalic Neck: Yes: Supple, Trachea Midline Cardiovascular: Yes: Regular Rate and Rhythm Respiratory: Yes: Regular Gastrointestinal: Yes: Soft, Distention. No: Tenderness ...Rectal Exam: Yes: Deferred Genitourinary: No: CVA Tenderness - Left, CVA Tenderness - Right Breast(s): No: Nipple Inversion, Skin Changes Musculoskeletal: No: Joint Stiffness, Joint Swelling Extremities: No: Calf Tenderness, Erythema Integumentary: No: Erythema, Rash Neurological: Yes: Alert, Oriented Psychiatric: Yes: Alert, Oriented Labs: CBC, BMP 08/30/16 07:15 08/30/16 07:15 INR, PTT INR 1.25 (0.82-1.09) H D 08/29/16 07:45 Problem List - Problems (1) Volvulus of ascending colon Assessment/Plan: patient with improved status since admission but WBC increasing daily despite IV abx (levaquin flagyl). She still has some abd discomfort/soreness. await colonoscopy. Code(s): K56.2 - VOLVULUS
--- NOTE | 2016-08-30 09:40 | PN ---
Addendum entered and electronically signed by Giovana Collazo RES 08/30/16 18:27 : Quick HIV test negative, lactic acid 1.53 within range. Addendum entered and electronically signed by Giovana Collazo RES 08/30/16 16:23 : If fever spikes again CT Abd Oral and IV contrast. will follow lactate level. In light of fever, thrush, canker sores can not rule out inflammatory bowel disease. Addendum entered and electronically signed by Giovana Collazo RES 08/30/16 16:08 : Patient verbally consented to HIV testing. last HIV test 30 years ago when in [place] in the 's. Original Note: Physical Exam: SUBJECTIVE: Patient seen and examined at bed side. patient feeling reports + apatite, and feels weak secondary it to no eating. no current pain, mild abd soreness attributed to gas, patient reports having allot of flatulence. three BM yesterday brown non bloody. Denies Nausea vomiting, fevers, chills, CP, SOB, cough, lightheadedness. Patient reports having canker sores on oral mucosa and thrush that had since she quit 2 months ago. history of canker sores since child qiu. CDIFF ant and toxin negative OBJECTIVE: Vital Signs Period Temp Pulse Resp BP Sys/Espinoza Pulse Ox Last 24 Hr 99.3 F-100.3 F 77-85 18-20 100-113/59-65 96 GENERAL: Awake, alert, and fully oriented, in no acute distress. sitting comfortably. HEAD: Normal with no signs of trauma. EYES: extraocular movements intact, sclera anicteric, conjunctiva clear. No lid lag. EARS, NOSE, THROAT: Canker sores oral mucosa, oral thrush not scrap, Ears normal, nares patent, Dry mucous membranes. NECK: Normal range of motion, supple without lymphadenopathy, JVD, or masses. LUNGS: Breath sounds equal, clear to auscultation bilaterally. No wheezes, and no crackles. No accessory muscle use. HEART: Regular rate and rhythm, normal S1 and S2 without murmur, rub or gallop. ABDOMEN: Soft, nontender, not distended, normoactive bowel sounds, no guarding, no rebound, no masses. No hepatomegaly or splenomegaly. MUSCULOSKELETAL: Normal range of motion at all joints. No bony deformities or tenderness. No CVA tenderness. LOWER EXTREMITIES: 2+ pulses, warm, well-perfused. No calf tenderness. No peripheral edema. NEUROLOGICAL: no facial droop or focal neurological deficit, Normal speech. PSYCHIATRIC: Cooperative. Good eye contact. Appropriate mood and affect. SKIN: Warm, dry, normal turgor, no rashes or lesions noted. Laboratory Results - last 24 hr 08/30/16 08/30/16 07:15 07:15 WBC 15.6 H RBC 3.47 L Hgb 11.7 Hct 34.4 MCV 99.1 H MCHC 34.1 RDW 13.3 Plt Count 223 MPV 9.0 Neutrophils % 84.6 H Lymphocytes % 8.3 D Monocytes % 6.3 Eosinophils % 0.5 D Basophils % 0.3 Sodium 142 Potassium 4.0 Chloride 108 H Carbon Dioxide 29 Anion Gap 5 L BUN 4 L D Creatinine 0.5 L Creat Clearance w eGFR > 60 Random Glucose 112 H Calcium 8.6 Total Bilirubin 0.7 D AST 6 L D ALT 14 Alkaline Phosphatase 61 C-Reactive Protein 11.2 H D Total Protein 5.5 L Albumin 2.9 L Total Amylase 18 L D Active Medications Generic Name Dose Route Start Last Admin Trade Name Freq PRN Reason Stop Dose Admin Acetaminophen 650 mg 08/28/16 21:13 08/30/16 10:08 Tylenol Oral Solution - PO 650 mg Q4H PRN Administration FEVER OR PAIN Metronidazole 100 mls @ 100 mls/hr 08/28/16 18:00 08/30/16 09:07 Flagyl 500mg Premixed Ivpb - IVPB 100 mls/hr Q8H-IV JAYLEN Administration Levofloxacin 100 mls @ 100 mls/hr 08/29/16 18:15 08/30/16 10:09 Levaquin 500 Mg Premixed Ivpb - IVPB 100 mls/hr DAILY JAYLEN Administration Dextrose/Sodium Chloride 1,000 mls @ 75 mls/hr 08/30/16 14:45 08/30/16 13:40 D5-Ns - IV 75 mls/hr ASDIR JAYLEN Administration Nystatin 500,000 units 08/30/16 18:00 Nystatin Oral Suspension - PO Q6HPO JAYLEN ASSESSMENT/PLAN: 60YF w/ significant PMH of laprascopic oophorectomy and hernia repair presents with sudden onset of epigastric pain that woke her up from sleep. low grade fever and inc leukocystoss Acute Abdominal pain Volvulus: -serial abdominal exams. -blood cultures, no growth 48 hours - Stool Cdiff ant and tox neg -awaiting stool samples. -Levofloxacin IVPB day 3 -Metronidazole IVPB day 3 -IVF -Bowel prep for possible colonospy in am, if fever continue to spike will cancel colonoscopy. -surgery on case no emergent intervention needed at this time. Oral thrush: oral thrush history for two months, since smoking sesation. does not scrap. no related to fever. Nystatin Infiltrate on CXR: no sings of infection, asymptomatic. will continue to monitor vital signs, breathing, physical exam, CBC am Cardiomegaly: stable currently asymptomatic Smoking cessation: stable patient reports she is on a stage 2 and uses of nicotine patch 7mg TD , and she currently does not have the urge to smoke and will not be needing a patch. FEN DNS clear liquid as tolerated monitor and replete electrolytes as needed. DVT ppx- EAM, SCD Visit type - Emergency Visit Emergency Visit: Yes ED Registration Date: 08/28/16 Care time: The patient presented to the Emergency Department on the above date and was hospitalized for further evaluation of their emergent condition. - New Patient This patient is new to me today: No - Critical Care Critical Care patient: No
[2016-08-30] MEDS ORDERED: PEG3350/SOD SULF,BICARB,CL/KCL 4,000 ML SOLN.RECON PO ONE (10:00)
[2016-08-30] MEDS: LEVOFLOXACIN 500 MG IVPB 100 ML IVPB SCH (10:09)
[2016-08-30] MEDS ORDERED: SODIUM CHLORIDE 1,000 ML IV STA (12:31)
--- NOTE | 2016-08-30 12:36 | PN ---
Teaching Attending Note Name of Resident: Giovana Collazo ATTENDING PHYSICIAN STATEMENT I saw and evaluated the patient. I reviewed the resident's note and discussed the case with the resident. I agree with the resident's findings and plan as documented. SUBJECTIVE:continues to have abdominal soreness. copious amount of flatus. no BM since yesterday afternoon. denies CP, SOb, fever, chills, N/V/C?D, tolerating liquid diet OBJECTIVE: Last Vital Signs Temp Pulse Resp BP Pulse Ox 99.5 F 78 18 99/66 96 08/30/16 11:07 08/30/16 11:07 08/30/16 11:07 08/30/16 11:07 08/29/16 21:00 General NAD HEENT apthous ulcer lower lip. white plaque of the tongue abdomen soft NT, minimal distention. hyperactive BS ASSESSMENT AND PLAN: 60yo F with no PMH presented to the ER and was admitted for further evaluation of their emergent condition 1. Volvulus- Tm 101.4. possible segmental colitis vs cdiff. awaiting stool samples. bolus 1L NS. will watch for fevers. if spikes again will reculture and consider ID eval for broader abx. plan is for colonoscopy in the AM. cont levaquin/Flagyl day 3. if continues to spike will have to cancel colonoscopy. f /u Cx GI and surgery on board. 2. oral thrush- white plaques do not scrape. states she had it for months. no dysphagia or odynophagia. do not believe this to be related to fevers. will give nystatin swish and swallow 3. DVT ppx- EAM,
[2016-08-30] MEDS ORDERED: DEXTROSE 5%-NORMAL SALINE 1,000 ML IV SCH (14:45)
--- NOTE | 2016-08-30 16:31 | PN ---
GI Progress Note Subjective: GASTROENTEROLOGY NO COMPLAINTS EXCEPT STOMACH "RUMBLING" FOR COLONOSCOPY HAD TEMP THIS AM WBC STILL ELEVATED - Objective Vital Signs: Vital Signs Temperature 97.9 F 08/30/16 15:32 Pulse Rate 72 08/30/16 15:32 Respiratory Rate 18 08/30/16 15:32 Blood Pressure 98/64 08/30/16 15:32 O2 Sat by Pulse Oximetry (%) 95 08/30/16 09:00 Constitutional: No Distress Eyes: Yes: Conjunctiva Clear HENT: Yes: Normocephalic Neck: Yes: Supple Cardiovascular: Yes: Regular Rate and Rhythm Respiratory: Yes: Regular Gastrointestinal Inspection: Yes: WNL ...Auscultate: Yes: Normoactive Bowel Sounds ...Palpate: Yes: Soft (NO MASS, NO GUARDING , NO TENDERNESS) Extremities: Yes: WNL Labs: CBC, BMP 08/30/16 07:15 08/30/16 07:15 INR, PTT INR 1.25 (0.82-1.09) H D 08/29/16 07:45 Laboratory Tests 08/29/16 08/29/16 08/30/16 07:45 07:45 07:15 WBC RBC Hgb Hct MCV MCHC RDW Plt Count MPV Neutrophils % Lymphocytes % Monocytes % Eosinophils % Basophils % INR 1.25 H D Sodium 142 Potassium 4.0 Chloride 108 H Carbon Dioxide 29 Anion Gap 5 L BUN 4 L D Creatinine 0.5 L Calcium 8.6 Total Bilirubin 0.7 D AST 6 L D ALT 14 Alkaline Phosphatase 61 C-Reactive Protein 11.2 H D Total Protein 5.5 L Albumin 2.9 L Total Amylase 30 Lipase 41 L 08/30/16 07:15 WBC 15.6 H RBC 3.47 L Hgb 11.7 Hct 34.4 MCV 99.1 H MCHC 34.1 RDW 13.3 Plt Count 223 MPV 9.0 Neutrophils % 84.6 H Lymphocytes % 8.3 D Monocytes % 6.3 Eosinophils % 0.5 D Basophils % 0.3 INR Sodium Potassium Chloride Carbon Dioxide Anion Gap BUN Creatinine Calcium Total Bilirubin AST ALT Alkaline Phosphatase C-Reactive Protein Total Protein Albumin Total Amylase Lipase Problem List - Problems (1) Volvulus of ascending colon Assessment/Plan: FOR COLONOSCOPY IN AM DESPITE ELEVATED WBC AND FEVER HAS NO COMPLAINTS AND EXAM IS NORMAL! IF STILL WITH TEMP SPIKE FOR CT SCAN ABD AND PELVIS PO/IV CONTRAST CHECK LACTIC ACID LEVEL Code(s): K56.2 - VOLVULUS (2) Abnormal CT scan, colon Code(s): R93.3 - ABNORMAL FINDINGS ON DX IMAGING OF PRT DIGESTIVE TRACT (3) Enterocolitis Code(s): K52.9 - NONINFECTIVE GASTROENTERITIS AND COLITIS, UNSPECIFIED
[2016-08-30] MEDS: NYSTATIN 500,000 UNITS/5 ML SUSPENSION PO SCH (17:03)
[2016-08-30 18:14] LABS: HIV 1 & 2 AB NEGATIVE; HIV 1 AGp24 NEGATIVE
[2016-08-31] MEDS: NYSTATIN 500,000 UNITS/5 ML SUSPENSION PO SCH ×5 (00:05→18:30)
[2016-08-31] MEDS: METRONIDAZOLE 500 MG PREMIXED 100 ML IVPB SCH ×5 (02:28→19:44)
--- NOTE | 2016-08-31 07:23 | PN ---
Physical Exam: SUBJECTIVE: Patient seen and examined OBJECTIVE: Vital Signs Period Temp Pulse Resp BP Sys/Espinoza Pulse Ox Last 24 Hr 97.8 F-101.4 F 64-78 18-18 96-101/61-69 95-95 GENERAL: The patient is awake, alert, and fully oriented, in no acute distress. HEAD: Normal with no signs of trauma. EYES: PERRL, extraocular movements intact, sclera anicteric, conjunctiva clear. No ptosis. ENT: Ears normal, nares patent, oropharynx clear without exudates, moist mucous membranes. NECK: Trachea midline, full range of motion, supple. LUNGS: Breath sounds equal, clear to auscultation bilaterally, no wheezes, no crackles, no accessory muscle use. HEART: Regular rate and rhythm, S1, S2 without murmur, rub or gallop. ABDOMEN: Soft, nontender, nondistended, normoactive bowel sounds, no guarding, no rebound, no hepatosplenomegaly, no masses. EXTREMITIES: 2+ pulses, warm, well-perfused, no edema. NEUROLOGICAL: Cranial nerves II through XII grossly intact. Normal speech, gait not observed. PSYCH: Normal mood, normal affect. SKIN: Warm, dry, normal turgor, no rashes or lesions noted Laboratory Results - last 24 hr 08/30/16 08/30/16 08/30/16 07:15 07:15 16:45 WBC 15.6 H RBC 3.47 L Hgb 11.7 Hct 34.4 MCV 99.1 H MCHC 34.1 RDW 13.3 Plt Count 223 MPV 9.0 Neutrophils % 84.6 H Lymphocytes % 8.3 D Monocytes % 6.3 Eosinophils % 0.5 D Basophils % 0.3 Sodium 142 Potassium 4.0 Chloride 108 H Carbon Dioxide 29 Anion Gap 5 L BUN 4 L D Creatinine 0.5 L Creat Clearance w eGFR > 60 Random Glucose 112 H Lactic Acid 1.513 Calcium 8.6 Total Bilirubin 0.7 D AST 6 L D ALT 14 Alkaline Phosphatase 61 C-Reactive Protein 11.2 H D Total Protein 5.5 L Albumin 2.9 L Total Amylase 18 L D HIV 1&2 Antibody Screen HIV P24 Antigen 08/30/16 16:45 WBC RBC Hgb Hct MCV MCHC RDW Plt Count MPV Neutrophils % Lymphocytes % Monocytes % Eosinophils % Basophils % Sodium Potassium Chloride Carbon Dioxide Anion Gap BUN Creatinine Creat Clearance w eGFR Random Glucose Lactic Acid Calcium Total Bilirubin AST ALT Alkaline Phosphatase C-Reactive Protein Total Protein Albumin Total Amylase HIV 1&2 Antibody Screen Negative HIV P24 Antigen Negative Active Medications Generic Name Dose Route Start Last Admin Trade Name Freq PRN Reason Stop Dose Admin Acetaminophen 650 mg 08/28/16 21:13 08/30/16 10:08 Tylenol Oral Solution - PO 650 mg Q4H PRN Administration FEVER OR PAIN Metronidazole 100 mls @ 100 mls/hr 08/28/16 18:00 08/31/16 02:28 Flagyl 500mg Premixed Ivpb - IVPB 100 mls/hr Q8H-IV JAYLEN Administration Levofloxacin 100 mls @ 100 mls/hr 08/29/16 18:15 08/30/16 10:09 Levaquin 500 Mg Premixed Ivpb - IVPB 100 mls/hr DAILY JAYLEN Administration Dextrose/Sodium Chloride 1,000 mls @ 75 mls/hr 08/30/16 14:45 08/30/16 13:40 D5-Ns - IV 75 mls/hr ASDIR JAYLEN Administration Nystatin 500,000 units 08/30/16 18:00 08/30/16 17:03 Nystatin Oral Suspension - PO 500,000 units Q6HPO JAYLEN Administration ASSESSMENT/PLAN: Active Medications Acetaminophen (Tylenol Oral Solution -) 650 mg PO Q4H PRN PRN Reason: FEVER OR PAIN Last Admin: 08/30/16 10:08 Dose: 650 mg Metronidazole (Flagyl 500mg Premixed Ivpb -) 100 mls @ 100 mls/hr IVPB Q8H-IV JAYLEN Last Admin: 08/31/16 02:28 Dose: 100 mls/hr Levofloxacin (Levaquin 500 Mg Premixed Ivpb -) 100 mls @ 100 mls/hr IVPB DAILY JAYLEN Last Admin: 08/30/16 10:09 Dose: 100 mls/hr Dextrose/Sodium Chloride (D5-Ns -) 1,000 mls @ 75 mls/hr IV ASDIR JAYLEN Last Admin: 08/30/16 13:40 Dose: 75 mls/hr Nystatin (Nystatin Oral Suspension -) 500,000 units PO Q6HPO JAYLEN Last Admin: 08/30/16 17:03 Dose: 500,000 units
[2016-08-31 08:40] LABS: MCH 34.1 pg (25.7-33.7); MCHC 34.1 g/dl (32.0-36.0); MEAN PLT VOLUME 8.8 fl (7.5-11.1); PLATELET COUNT 186 K/MM3 (134-434); WHITE BLOOD COUNT 6.3 K/mm3 (4.0-10.0)
[2016-08-31] MEDS: LEVOFLOXACIN 500 MG IVPB 100 ML IVPB SCH ×2 (10:00→13:12)
--- NOTE | 2016-08-31 12:06 | PN ---
Progress Note, Physician Chief Complaint: wants to go home History of Present Illness: abd still sore but no pain. no N/V. s/p colonoscopy showing some ulcers/ erythema of R colon (not that severe when I looked at report). she is hungry - Current Medication List Current Medications: Active Medications Acetaminophen (Tylenol Oral Solution -) 650 mg PO Q4H PRN PRN Reason: FEVER OR PAIN Last Admin: 08/30/16 10:08 Dose: 650 mg Metronidazole (Flagyl 500mg Premixed Ivpb -) 100 mls @ 100 mls/hr IVPB Q8H-IV JAYLEN Last Admin: 08/31/16 11:46 Dose: 100 mls/hr Levofloxacin (Levaquin 500 Mg Premixed Ivpb -) 100 mls @ 100 mls/hr IVPB DAILY [facility] Last Admin: 08/30/16 10:09 Dose: 100 mls/hr Dextrose/Sodium Chloride (D5-Ns -) 1,000 mls @ 75 mls/hr IV ASDIR [facility] Last Admin: 08/30/16 13:40 Dose: 75 mls/hr Nystatin (Nystatin Oral Suspension -) 500,000 units PO Q6HPO [facility] Last Admin: 08/31/16 11:51 Dose: Not Given - Objective Vital Signs: Vital Signs Temperature 98.1 F 08/31/16 11:37 Pulse Rate 61 08/31/16 11:37 Respiratory Rate 20 08/31/16 11:37 Blood Pressure 97/57 08/31/16 11:37 O2 Sat by Pulse Oximetry (%) 97 08/31/16 11:37 Constitutional: Yes: No Distress, Calm Eyes: Yes: Conjunctiva Clear, EOM Intact HENT: Yes: Atraumatic, Normocephalic Neck: Yes: Supple, Trachea Midline Cardiovascular: Yes: Regular Rate and Rhythm Respiratory: Yes: Regular, CTA Bilaterally Gastrointestinal: Yes: Soft. No: Distention, Tenderness ...Rectal Exam: Yes: Deferred Genitourinary: No: CVA Tenderness - Left, CVA Tenderness - Right Breast(s): No: Mass, Nipple Inversion Musculoskeletal: No: Joint Stiffness, Joint Swelling Extremities: No: Calf Tenderness, Erythema Integumentary: No: Erythema, Rash Neurological: Yes: Alert, Oriented Psychiatric: Yes: Alert, Oriented Labs: CBC, BMP 08/31/16 07:15 08/30/16 07:15 INR, PTT INR 1.25 (0.82-1.09) H D 08/29/16 07:45 Problem List - Problems (1) Volvulus of ascending colon Assessment/Plan: patient with R sided colitis ischemic vs infectious reg diet no surgical intervention planned should likely f/u with GI as outpt Code(s): K56.2 - VOLVULUS
--- NOTE | 2016-08-31 12:13 | PN ---
Progress Note (short form) - Note Progress Note: GI Procedure NOte: Multiple deep ulcers were noted in the right colon The picture is more consistent with ischemic colitis than Crohn's Disease or ulcerative colitis. No volvulus was seen. Will order CTA. Given fevers will consult ID. Suspect gram negative bactermia from colon ulcers.
--- NOTE | 2016-08-31 14:28 | CONSULT ---
Consult Consult Specialty:: Infectious Disease Referred by:: Arpan Reason for Consultation:: Possible Gram negative bacteremia - History of Present Illness Chief Complaint: Abdominal pain History of Present Illness: This is a 60F denies PMH, denies being on medications, presented to the ED for abdominal pain that woke up her. Initially there was a concern for right sided volvulus on CT scan but after GI evaluation concern was more for ischemic colitis. Patient was evaluated by surgery and was not a surgical candidate. She also had a colonoscopy which showed ulcerations in the right side of the colon which is typically seen with ischemic colitis. ID called for evaluation of possible gram negative sepsis from translocation of gut bacteria. She currently denies abdominal pain, nausea, voting fevers, chills, chest pain or shortness of breath. She is toelrating diet and is anxious to go home. She states she has thrush on her tongue. She denies any high risk sexual behavior. She denies IV drug abuse. Had a pet which 2 weeks ago. - History Source History Provided By: Patient, Medical Record Limitations to Obtaining History: No Limitations - Past Medical History Gastrointestinal: Yes: Pancreatitis (remotely ? etiology), Other (Normal colonoscopy 7 years ago. 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 ?) - Past Surgical History Past Surgical History: Yes: Colonoscopy, Hernia Repair (right femoral hernia repair), Joint Replacement (Right hip), Oopherectomy (laparoscopic bilateral ovariectomies for cysts) - Alcohol/Substance Use Hx Alcohol Use: Yes (social- 2 galsses of wine nighthly) - Smoking History Smoking history: Former smoker Have you smoked in the past 12 months: Yes Aproximately how many cigarettes per day: 20 If you are a former smoker, when did you quit?: JUN 2016 - Social History Usual Living Arrangement: With Spouse ADL: Independent 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 History of Recent Travel: No Home Medications - Allergies Allergies/Adverse Reactions: Allergies Allergy/AdvReac Type Severity Reaction Status Date / Time coconut oil Allergy Verified 08/31/16 14:27 - Home Medications Home Medications: Ambulatory Orders NK [No Known Home Medication] 08/28/16 Family Disease History - Family Disease History Family Disease History: Heart Disease: Father ( [place] age 65, head trauma seizures ), Mother ( [place] age 73), Other: Father Other Family History: cousin with pancreatic cancer Review of Systems - Review of Systems Constitutional: reports: No Symptoms Eyes: reports: No Symptoms HENT: reports: No Symptoms Neck: reports: No Symptoms Cardiovascular: reports: No Symptoms Respiratory: reports: No Symptoms Gastrointestinal: reports: Abdominal Pain, Diarrhea, Nausea, Vomiting Genitourinary: reports: No Symptoms Breasts: reports: No Symptoms Reported Musculoskeletal: reports: No Symptoms Integumentary: reports: No Symptoms Neurological: reports: No Symptoms Physical Exam Vital Signs: Vital Signs Temperature 98.1 F 08/31/16 11:37 Pulse Rate 61 08/31/16 11:37 Respiratory Rate 20 08/31/16 11:37 Blood Pressure 97/57 08/31/16 11:37 O2 Sat by Pulse Oximetry (%) 97 08/31/16 11:37 Laboratory Tests 08/28/16 08/28/16 08/28/16 04:00 04:00 04:00 WBC 9.9 RBC 3.84 Hgb 12.8 Hct 38.1 MCV 99.3 H MCHC 33.6 RDW 13.2 Plt Count 289 MPV 8.7 Neutrophils % 55.0 Lymphocytes % 36.8 Monocytes % 5.9 Eosinophils % 1.1 Basophils % 1.2 INR 0.96 Sodium 143 Potassium 3.7 Chloride 104 Carbon Dioxide 28 Anion Gap 11 BUN 19 H Creatinine 0.7 Creat Clearance w eGFR > 60 Random Glucose 161 H Lactic Acid Calcium 9.6 Total Bilirubin 0.3 AST 11 L ALT 17 Alkaline Phosphatase 62 C-Reactive Protein Total Protein 6.5 Albumin 3.6 Total Amylase Lipase 63 L Urine Color Urine Appearance Urine pH Ur Specific [place] Urine Protein Urine Glucose (UA) Urine Ketones Urine Blood Urine Nitrite Urine Bilirubin Urine Urobilinogen Ur Leukocyte Esterase Urine RBC Urine WBC Ur Epithelial Cells Urine Mucus HIV 1&2 Antibody Screen HIV P24 Antigen Blood Type Antibody Screen 08/28/16 08/28/16 08/28/16 04:00 06:03 07:45 WBC RBC Hgb Hct MCV MCHC RDW Plt Count MPV Neutrophils % Lymphocytes % Monocytes % Eosinophils % Basophils % INR Sodium Potassium Chloride Carbon Dioxide Anion Gap BUN Creatinine Creat Clearance w eGFR Random Glucose Lactic Acid Calcium Total Bilirubin AST ALT Alkaline Phosphatase C-Reactive Protein Total Protein Albumin Total Amylase Lipase Urine Color Ltyellow Urine Appearance Clear Urine pH 6.0 Ur Specific [place] 1.057 H Urine Protein Negative Urine Glucose (UA) Negative Urine Ketones Negative Urine Blood Negative Urine Nitrite Negative Urine Bilirubin Negative Urine Urobilinogen Negative Ur Leukocyte Esterase 1+ H Urine RBC 2 Urine WBC 2 Ur Epithelial Cells Rare Urine Mucus Rare HIV 1&2 Antibody Screen HIV P24 Antigen Blood Type O POSITIVE O POSITIVE Antibody Screen Negative 08/28/16 08/29/16 08/29/16 07:45 07:45 07:45 WBC 13.0 H D RBC 3.48 L Hgb 11.7 Hct 34.5 MCV 99.1 H MCHC 33.8 RDW 13.4 Plt Count 215 D MPV 9.0 Neutrophils % 81.6 D Lymphocytes % 11.6 D Monocytes % 6.2 Eosinophils % 0.2 D Basophils % 0.4 INR Sodium 143 Potassium 3.7 Chloride 110 H Carbon Dioxide 26 Anion Gap 7 L BUN 7 D Creatinine 0.6 Creat Clearance w eGFR > 60 Random Glucose 137 H Lactic Acid 1.421 Calcium 8.4 L Total Bilirubin 0.5 D AST 9 L ALT 14 Alkaline Phosphatase 56 C-Reactive Protein 6.9 H Total Protein 5.5 L Albumin 3.0 L Total Amylase 30 Lipase 41 L Urine Color Urine Appearance Urine pH Ur Specific [place] Urine Protein Urine Glucose (UA) Urine Ketones Urine Blood Urine Nitrite Urine Bilirubin Urine Urobilinogen Ur Leukocyte Esterase Urine RBC Urine WBC Ur Epithelial Cells Urine Mucus HIV 1&2 Antibody Screen HIV P24 Antigen Blood Type Antibody Screen 08/29/16 08/30/16 08/30/16 07:45 07:15 07:15 WBC 15.6 H RBC 3.47 L Hgb 11.7 Hct 34.4 MCV 99.1 H MCHC 34.1 RDW 13.3 Plt Count 223 MPV 9.0 Neutrophils % 84.6 H Lymphocytes % 8.3 D Monocytes % 6.3 Eosinophils % 0.5 D Basophils % 0.3 INR 1.25 H D Sodium 142 Potassium 4.0 Chloride 108 H Carbon Dioxide 29 Anion Gap 5 L BUN 4 L D Creatinine 0.5 L Creat Clearance w eGFR > 60 Random Glucose 112 H Lactic Acid Calcium 8.6 Total Bilirubin 0.7 D AST 6 L D ALT 14 Alkaline Phosphatase 61 C-Reactive Protein 11.2 H D Total Protein 5.5 L Albumin 2.9 L Total Amylase 18 L D Lipase Urine Color Urine Appearance Urine pH Ur Specific [place] Urine Protein Urine Glucose (UA) Urine Ketones Urine Blood Urine Nitrite Urine Bilirubin Urine Urobilinogen Ur Leukocyte Esterase Urine RBC Urine WBC Ur Epithelial Cells Urine Mucus HIV 1&2 Antibody Screen HIV P24 Antigen Blood Type Antibody Screen 08/30/16 08/30/16 08/31/16 16:45 16:45 07:15 WBC 6.3 D RBC 3.01 L Hgb 10.3 L D Hct 30.1 L MCV 100.0 H MCHC 34.1 RDW 13.0 Plt Count 186 MPV 8.8 Neutrophils % Lymphocytes % Monocytes % Eosinophils % Basophils % INR Sodium Potassium Chloride Carbon Dioxide Anion Gap BUN Creatinine Creat Clearance w eGFR Random Glucose Lactic Acid 1.513 Calcium Total Bilirubin AST ALT Alkaline Phosphatase C-Reactive Protein Total Protein Albumin Total Amylase Lipase Urine Color Urine Appearance Urine pH Ur Specific [place] Urine Protein Urine Glucose (UA) Urine Ketones Urine Blood Urine Nitrite Urine Bilirubin Urine Urobilinogen Ur Leukocyte Esterase Urine RBC Urine WBC Ur Epithelial Cells Urine Mucus HIV 1&2 Antibody Screen Negative HIV P24 Antigen Negative Blood Type Antibody Screen Microbiology 08/31/16 10:30 Colon Fluid Parasite Direct Smear - Final 08/31/16 10:30 Colon Fluid Ova and Parasite Macroscopic Exam - Final 08/31/16 10:30 Colon Fluid Parasite Concentrated Smear - Preliminary 08/31/16 10:30 Colon Fluid Parasite Permanent Smear - Preliminary 08/31/16 10:30 Colon Fluid Cryptosporidium Antigen - Final 08/31/16 10:30 Colon Fluid - Final 08/31/16 10:30 Colon Fluid Giardia Antigen (ANA) - Final 08/28/16 18:00 Blood - Peripheral Venous Blood Culture - Preliminary NO GROWTH OBTAINED AFTER 48 HOURS, INCUBATION TO CONTINUE FOR 3 DAYS. 08/28/16 18:00 Blood - Peripheral Venous Blood Culture - Preliminary NO GROWTH OBTAINED AFTER 48 HOURS, INCUBATION TO CONTINUE FOR 3 DAYS. 08/30/16 12:00 Stool Clostridium difficile Antigen (AAN) - Final 08/30/16 12:00 Stool Clostridium difficile Toxin Assay - Final 08/29/16 09:40 Urine - Urine Clean Catch Urine Culture - Final NO GROWTH OBTAINED Constitutional: Yes: Well Nourished, No Distress, Calm Eyes: Yes: Conjunctiva Clear HENT: Yes: Other (white coating on tongue not consistent with thrush) Neck: Yes: Supple Cardiovascular: Yes: Regular Rate and Rhythm Respiratory: Yes: CTA Bilaterally Gastrointestinal: Yes: WNL, Soft Extremities: Yes: WNL Edema: No Neurological: Yes: WNL, Alert, Oriented Psychiatric: Yes: Alert, Oriented Labs: CBC, BMP 08/31/16 07:15 08/30/16 07:15 Imaging - Results X-ray: Report Reviewed, Image Reviewed (abdominal) Cat Scan: Report Reviewed, Image Reviewed (abdominal/pelvis) Assessment/Plan 60F with no PMH presents to the ED with abdominal pain initially thought to be volvulus which was ruled out and was found to have ischemic colitis on colonoscopy. ID asked to evaluate for possibility of gram negative sepsis secondary to translocation. Patient is on day 3 of IV levaquin/flagyl patient is clinically and hemodynamically stable She has bee afebrile for 24 hours and leukocystosis has normalized patient for CTA of the abdomen from infectious disease standpoint patient can be discharged on oral levaquin/ flagyl to make a total of 10 antibiotic days thank you for this consult
--- NOTE | 2016-08-31 15:09 | PN ---
Progress Note (short form) - Note Progress Note: ID Consult reviewed with resident Currently no abd pain Levofloxacin and metronidazole Selected Entries 08/31/16 11:37 Temperature 98.1 F Pulse Rate 61 Respiratory 20 Rate Blood Pressure 97/57 Abd Soft nontender Microbiology 08/30/16 12:00 Stool Clostridium difficile Antigen (ANA) - Final 08/30/16 12:00 Stool Clostridium difficile Toxin Assay - Final 08/29/16 09:40 Urine - Urine Clean Catch Urine Culture - Final NO GROWTH OBTAINED 08/28/16 18:00 Blood - Peripheral Venous Blood Culture - Preliminary NO GROWTH OBTAINED AFTER 48 HOURS, INCUBATION TO CONTINUE FOR 3 DAYS. 08/28/16 18:00 Blood - Peripheral Venous Blood Culture - Preliminary NO GROWTH OBTAINED AFTER 48 HOURS, INCUBATION TO CONTINUE FOR 3 DAYS. Laboratory Tests 08/30/16 08/30/16 08/30/16 07:15 07:15 16:45 WBC 15.6 H Hgb Hct Plt Count BUN 4 L D Creatinine 0.5 L HIV 1&2 Antibody Screen Negative HIV P24 Antigen Negative 08/31/16 07:15 WBC 6.3 D Hgb 10.3 L D Hct 30.1 L Plt Count 186 BUN Creatinine HIV 1&2 Antibody Screen HIV P24 Antigen Assessment Ischemic colonic ulcers Plan Continue levofoxacin metronidazole IV or orally at discharge CT angio is scheduled Do not think she has thrush ( aphthous ulcers) Jennifer SANTACRUZ Problem List - Problems (1) Ischemic necrosis of large intestine Code(s): K55.0 - ACUTE VASCULAR DISORDERS OF INTESTINE * DO NOT USE *
--- NOTE | 2016-08-31 16:44 | PN ---
Teaching Attending Note Name of Resident: Giovana Collazo ATTENDING PHYSICIAN STATEMENT I saw and evaluated the patient. I reviewed the resident's note and discussed the case with the resident. I agree with the resident's findings and plan as documented. SUBJECTIVE:currently asymptomatic. continues to have some soreness of that abdomen. tolerated colonoscopy. denies Cp, SOb,fver, chills, N/V/C/D OBJECTIVE: Last Vital Signs Temp Pulse Resp BP Pulse Ox 98.6 F 70 20 97/65 97 08/31/16 14:17 08/31/16 14:17 08/31/16 14:08/31/16 14:08/31/16 11:37 General NAD HEENT apthous ulcer lower lip. white plaque of the tongue abdomen soft NT/ND normoactive BS ASSESSMENT AND PLAN: 60yo F with no PMH presented to the ER and was admitted for further evaluation of their emergent condition 1. Volvulus-afebrile 24H. colonoscopy done showing several ulcers with concern for ischemic colitis. CTA ordered to evaluate. cdiff/Cx negative and no leukocytosis. ID consulted by GI to determine if more aggressive abx therapy needed at this time. cont levaquin/Flagyl day 4. 2. white plaque on tongue- does not appear to be thrush, however does not scrape. ID to comment on if should be empirically treated 3. DVT ppx- EAM, 4. pt is very adamant about going home. informed her need to obtain CTA to r/o pathology. will d/w GI results of scan if further management can be done as outpatient
--- NOTE | 2016-08-31 19:51 | PN ---
Physical Exam: SUBJECTIVE: Patient seen and examined at bed side. patient reports abd pain has resolved and is currently feeling well. patient reports tolerating regualr diet with out abd pian. patient denies fevers, chills, n/v/d/c, cp, sob. s/p colonoscopy: right colon ischemic colitiis ulcers CTA done awaiting report OBJECTIVE: Vital Signs Period Temp Pulse Resp BP Sys/Espinoza Pulse Ox Last 24 Hr 97.5 F-99.2 F 57-73 18-22 90-107/54-65 93-99 GENERAL: Awake, alert, and fully oriented, in no acute distress. sitting comfortably. HEAD: Normal with no signs of trauma. EYES: extraocular movements intact, sclera anicteric, conjunctiva clear. No lid lag. EARS, NOSE, THROAT: Canker sores oral mucosa, oral thrush not scrap, Ears normal, nares patent, Dry mucous membranes. NECK: Normal range of motion, supple without lymphadenopathy, JVD, or masses. LUNGS: Breath sounds equal, clear to auscultation bilaterally. No wheezes, and no crackles. No accessory muscle use. HEART: Regular rate and rhythm, normal S1 and S2 without murmur, rub or gallop. ABDOMEN: Soft, nontender, not distended, normoactive bowel sounds, no guarding, no rebound, no masses. No hepatomegaly or splenomegaly. MUSCULOSKELETAL: Normal range of motion at all joints. No bony deformities or tenderness. No CVA tenderness. LOWER EXTREMITIES: 2+ pulses, warm, well-perfused. No calf tenderness. No peripheral edema. NEUROLOGICAL: no facial droop or focal neurological deficit, Normal speech. PSYCHIATRIC: Cooperative. Good eye contact. Appropriate mood and affect. SKIN: Warm, dry, normal turgor, no rashes or lesions noted. Laboratory Results - last 24 hr 08/31/16 07:15 WBC 6.3 D RBC 3.01 L Hgb 10.3 L D Hct 30.1 L MCV 100.0 H MCHC 34.1 RDW 13.0 Plt Count 186 MPV 8.8 Active Medications Generic Name Dose Route Start Last Admin Trade Name Freq PRN Reason Stop Dose Admin Acetaminophen 650 mg 08/28/16 21:13 08/30/16 10:08 Tylenol Oral Solution - PO 650 mg Q4H PRN Administration FEVER OR PAIN Metronidazole 100 mls @ 100 mls/hr 08/28/16 18:00 08/31/16 15:45 Flagyl 500mg Premixed Ivpb - IVPB Not Given Q8H-IV JAYLEN Levofloxacin 100 mls @ 100 mls/hr 08/29/16 18:15 08/31/16 13:12 Levaquin 500 Mg Premixed Ivpb - IVPB 100 mls/hr DAILY JAYLEN Administration Nystatin 500,000 units 08/30/16 18:00 08/31/16 18:30 Nystatin Oral Suspension - PO Not Given Q6HPO JAYLEN ASSESSMENT/PLAN: 60YF w/ significant PMH of laprascopic oophorectomy and hernia repair presents with sudden onset of epigastric pain that woke her up from sleep. low grade fever and inc leukocystoss Acute Abdominal pain secondary to ischemic colitits right colon Multiple deep ulcers were noted in the right colon : s/p colonoscopy. The picture is more consistent with ischemic colitis than Crohn's Disease or ulcerative colitis. -serial abdominal exams. -blood cultures, no growth 48 hours - Stool Cdiff ant and tox neg -Levofloxacin IVPB day 4 -Metronidazole IVPB day 4 -IVF -surgery on case no emergent intervention needed at this time. Awaiting CTA read fever: She has bee afebrile for 24 hours and leukocystosis has normalized, Continue levofoxacin metronidazole IV or orally at discharge per ID attending ( total of 10 antibiotic days) Oral thrush: oral thrush history for two months, since smoking sesation. does not scrap. no related to fever. Nystatin Infiltrate on CXR: no sings of infection, asymptomatic. will continue to monitor vital signs, breathing, physical exam, CBC am Cardiomegaly: stable currently asymptomatic Smoking cessation: stable patient reports she is on a stage 2 and uses of nicotine patch 7mg TD , and she currently does not have the urge to smoke and will not be needing a patch. FEN DNS clear liquid as tolerated monitor and replete electrolytes as needed. DVT ppx- EAM, SCD Visit type - Emergency Visit Emergency Visit: Yes ED Registration Date: 08/28/16 Care time: The patient presented to the Emergency Department on the above date and was hospitalized for further evaluation of their emergent condition. - New Patient This patient is new to me today: No - Critical Care Critical Care patient: No
[2016-09-01] MEDS: NYSTATIN 500,000 UNITS/5 ML SUSPENSION PO SCH ×3 (00:41→13:12)
[2016-09-01] MEDS: METRONIDAZOLE 500 MG PREMIXED 100 ML IVPB SCH ×2 (03:58→09:35)
[2016-09-01 07:28] LABS: BASOPHIL 0.7 % (0-2.0); EOSINOPHIL 1.4 % (0-4.5); MCHC 34.4 g/dl (32.0-36.0); MEAN CELL VOLUME 98.9 fl (80-96); MEAN PLT VOLUME 8.7 fl (7.5-11.1); NEUTROPHILS 62.9 % (42.8-82.8); PLATELET COUNT 224 K/MM3 (134-434); RDW 13.2 % (11.6-15.6); WHITE BLOOD COUNT 5.8 K/mm3 (4.0-10.0)
[2016-09-01 07:50] LABS: CALCIUM 8.8 mg/dL (8.5-10.1); CREATININE 0.5 mg/dL (0.55-1.02)
[2016-09-01] MEDS: LEVOFLOXACIN 500 MG IVPB 100 ML IVPB SCH (10:37)
--- NOTE | 2016-09-01 11:48 | PATH ---
Surgical Pathology Report Patient Name: ALLY HURST [facility]. Rec. #: [id number] /Age/Gender: 1955 (Age: 60) / F Account: [id number] Location: [address] [place] [address] Taken: 08/31/2016 Received: 08/31/2016 Reported: 09/01/2016 Physicians: Thang Hankins M.D. Specimen(s) Received A: RECTAL POLYP B: BX ILEUM C: BX CECUM D: BX ULCERATED ISCHEMIC RIGHT COLON E: BX HEPATIC FLEXURE F: BX MID TRANSVERSE COLON G: DISTAL TRANSVERSE COLON POLYP H: BX SIGMOID I: BX RECTUM Clinical History Rule out volvulus/ischemic colitis, abdominal pain Polyps, ulcer right colon, suspect ischemic colitis Final Diagnosis A. RECTUM, POLYP, POLYPECTOMY: HYPERPLASTIC POLYP. B. ILEUM, BIOPSY: ILEAL MUCOSA WITHOUT SIGNIFICANT PATHOLOGIC CHANGES. NO EVIDENCE OF ACTIVE INFLAMMATION, SIGINIFICANT ARCHITECTURAL DISTORTION, GRANULOMATA OR DYSPLASIA; NO INCREASED INTRAEPITHELIAL LYMPHOCYTES. C. COLON, CECUM, BIOPSY: ULCERATED COLONIC MUCOSA WITH ACTIVE INFLAMMATION WITH CRYPTS DROP OUT, NECROINFLAMMATORY EXUDATE, FOCAL MUCOSAL HEMORRHAGE, LAMINA PROPRIA FIBROSIS AND FOCAL MICROCRYPT FORMATION (SEE COMMENT). NO EVIDENCE OF GRANULOMATA OR DYSPLASIA. D. COLON, RIGHT, ULCERATION, ISCHEMIA, BIOPSY: ULCERATED COLONIC MUCOSA WITH ACTIVE INFLAMMATION WITH CRYPTS DROP OUT, NECROINFLAMMATORY EXUDATE, FOCAL MUCOSAL HEMORRHAGE, LAMINA PROPRIA FIBROSIS AND FOCAL MICROCRYPT FORMATION (SEE COMMENT). NO EVIDENCE OF GRANULOMATA OR DYSPLASIA. E. COLON, HEPATIC FLEXURE, BIOPSY: COLONIC MUCOSA WITH FOCAL MILD ACTIVE INFLAMMATION AND MILD LAMINA PROPRIA FIBROSIS (SEE COMMENT). NO EVIDENCE OF GRANULOMATA OR DYSPLASIA. Comment: The histologic findings are most consistent with an ischemic injury. Infectious colitis such as C. Difficile associated colitis may show similar histologic changes; however, is less likely. Clinical, endoscopic and microbiologic correlations are suggested. F. COLON, MID TRANSVERSE, BIOPSY: COLONIC MUCOSA WITHOUT SIGNIFICANT PATHOLOGIC CHANGES. NO EVIDENCE OF ACTIVE INFLAMMATION, SIGINIFICANT ARCHITECTURAL DISTORTION, GRANULOMATA OR DYSPLASIA; NO EVIDENCE OF MICROSCOPIC COLITIS. G. COLON, DISTAL TRANSVERSE, POLYP, POLYPECTOMY: POLYPOID FRAGMENTS OF COLONIC MUCOSA WITH SURFACE HYPERPLASTIC CHANGE. H. COLON, SIGMOID, BIOPSY: COLONIC WITHOUT SIGNIFICANT PATHOLOGIC CHANGES. NO EVIDENCE OF ACTIVE INFLAMMATION, SIGINIFICANT ARCHITECTURAL DISTORTION, GRANULOMATA OR DYSPLASIA; NO EVIDENCE OF MICROSCOPIC COLITIS. I. RECTUM, BIOPSY: RECTAL MUCOSA WITHOUT SIGNIFICANT PATHOLOGIC CHANGES. NO EVIDENCE OF ACTIVE INFLAMMATION, SIGINIFICANT ARCHITECTURAL DISTORTION, GRANULOMATA OR DYSPLASIA; NO EVIDENCE OF MICROSCOPIC COLITIS. Electronically Signed Bruce Mckeon M.D. Gross Description A. Received in formalin, labeled "rectal polyp" is a alberto, irregular portion of soft tissue measuring 0.6 cm in greatest dimension. The specimen is submitted in toto in one cassette. B. Received in formalin, labeled "biopsy ileum" are 2 alberto, irregular portions of soft tissue measuring 0.2 and 0.3 cm in greatest dimension. The specimens are submitted in toto in one cassette. C. Received in formalin, labeled "biopsy cecum" are 5 alberto, irregular portions of soft tissue ranging from 0.1-0.3 cm in greatest dimension. The specimens are submitted in toto in one cassette. D. Received in formalin, labeled "biopsy ulcerated ischemic great colon" are 2 alberto, irregular portions of soft tissue measuring 0.2 and 0.3 cm in greatest dimension. The specimens are submitted in toto in one cassette. E. Received in formalin, labeled "biopsy hepatic flexure" are 2 alberto, irregular portions of soft tissue measuring 0.1 and 0.6 cm in greatest dimension. The specimens are submitted in toto in one cassette. F. Received in formalin, labeled "biopsy mid transverse colon" are 2 alberto, irregular portions of soft tissue measuring 0.4 and 0.7 cm in greatest dimension. The specimens are submitted in toto in one cassette. G. Received in formalin, labeled "distal transverse colon polyp" are 6 alberto, irregular portions of soft tissue ranging from 0.1-0.3 cm. in greatest dimension. The specimens are submitted in toto in one cassette. H. Received in formalin, labeled "biopsy sigmoid" are 2 alberto, irregular portions of soft tissue measuring 0.1 and 0.4 cm in greatest dimension. The specimens are submitted in toto in one cassette. I. Received in formalin, labeled "biopsy rectum" are 2 alberto, irregular portions of soft tissue measuring 0.3 and 0.6 cm in greatest dimension. The specimens are submitted in toto in one cassette. 08/31/201608/31/2016
[2016-09-01 13:15] VITALS: BP 98/64; PULSE 68
--- NOTE | 2016-09-01 13:27 | DS ---
Physical Exam: 60YF w/ significant PMH of laprascopic oophorectomy and hernia repair admitted for ischemic colitis -colonoscopy done by GI attending showed ulceration consistent of ischemic colitis -was febrile with elevated WBC so started on IV abx with good response; all cultures negative -now pain free and tolerating PO intake well -for discharge on levofloxacin/flagyl <Augustine Alcala - Last Filed: 09/01/16 18:40> Physical Exam: SUBJECTIVE: Patient seen and examined patient at bed side. patient feeling like her normal self, tolerated diet well, passing gas, urinating and moving bowel. ambulating well. No abd pain, N/V/D/C, fevers, chills, sob, lightheadedness. Arianna luevano was called to facilitate discharge as patient anxious and wants to be discharged. PCP: Elvia Ledesma phone: [phone] fax: [phone]. Will follow with PCP in 2-3 days and will follow up with GI. discussed case with Dr. allen and he reviewed patient chart, labs, imaging and agree with discharge and follow up with PCP and GI. He also agrees on finishing course of antibiotics. I called PCP dr Ledesma office to discuse the case, and left detailed message with her assistant spa director Antonia Bailey, I also provided my name and contact information for Dr. Humphrey to discussed case and if she had any questions. instructed patient not to drink while on medication. OBJECTIVE: Vital Signs Period Temp Pulse Resp BP Sys/Espinoza Pulse Ox Last 24 Hr 97.8 F-98.8 F 65-78 20-20 95-145/55-67 PHYSICAL EXAM GENERAL: Awake, alert, and fully oriented, in no acute distress. sitting comfortably. HEAD: Normal with no signs of trauma. EYES: extraocular movements intact, sclera anicteric, conjunctiva clear. No lid lag. EARS, NOSE, THROAT: Canker sores oral mucosa, oral thrush not scrap, Ears normal, nares patent, Dry mucous membranes. NECK: Normal range of motion, supple without lymphadenopathy, JVD, or masses. LUNGS: Breath sounds equal, clear to auscultation bilaterally. No wheezes, and no crackles. No accessory muscle use. HEART: Regular rate and rhythm, normal S1 and S2 without murmur, rub or gallop. ABDOMEN: Soft, nontender, not distended, normoactive bowel sounds, no guarding, no rebound, no masses. No hepatomegaly or splenomegaly. MUSCULOSKELETAL: Normal range of motion at all joints. No bony deformities or tenderness. No CVA tenderness. LOWER EXTREMITIES: 2+ pulses, warm, well-perfused. No calf tenderness. No peripheral edema. NEUROLOGICAL: no facial droop or focal neurological deficit, Normal speech. PSYCHIATRIC: Cooperative. Good eye contact. Appropriate mood and affect. SKIN: Warm, dry, normal turgor, no rashes or lesions noted. LABS Laboratory Results - last 24 hr 09/01/16 09/01/16 06:30 06:30 WBC 5.8 RBC 3.10 L Hgb 10.5 L Hct 30.6 L MCV 98.9 H MCHC 34.4 RDW 13.2 Plt Count 224 D MPV 8.7 Neutrophils % 62.9 D Lymphocytes % 29.4 D Monocytes % 5.6 Eosinophils % 1.4 D Basophils % 0.7 Sodium 144 Potassium 3.7 Chloride 110 H Carbon Dioxide 26 Anion Gap 8 BUN 5 L D Creatinine 0.5 L Random Glucose 98 Calcium 8.8 C-Reactive Protein 5.0 H D HOSPITAL COURSE: Date of Admission:08/28/16 Date of Discharge: 09/01/16 60YF w/ significant PMH of laprascopic oophorectomy and hernia repair c/o sudden onset of epigastric pain that woke her up from sleep. patient reports feeling like her normal and suddenly progressive constant epigastric 10/10 pain radiating diffusely to the rest of he Abdomen. after pain started patient reports have a soft non bloody BM which decreased the pain and pain returned stronger than before which prompted her to go to ED. patient reported rigid abdominal muscle and distended abdomen. patient reports had Nausea and one episode of non bloody non bilious vomit which contained food product. patient reports pain last 2.5 hours where she where it subsided with one time dose of meds received in ED. patient reports not having a BM for two days prior. patient reports eating out the night prior chicken and rice. patient has never had similar episodes in the past. no one else had similar symptoms. no sick contact. no recent illnesses. She denies fever, chills, night sweats, diaphoresis, generalized weakness weight loss, or weight gain She denies chest pain, shortness of breath, cough She denies diarrhea, dysuria, hematuria, urinary frequency and urgency, flank pain, vaginal discharge/vaginal bleeding, To note: colonoscopy 5 years ago unremarkable per patient. 60YF w/ significant PMH of laprascopic oophorectomy and hernia repair presents with sudden onset of epigastric pain that woke her up from sleep. low grade fever and inc leukocystoss Acute Abdominal pain secondary to ischemic colitits right colon Multiple deep ulcers were noted in the right colon : s/p colonoscopy. The picture is more consistent with ischemic colitis than Crohn's Disease or ulcerative colitis No volvulus was seen. - Stool Cdiff ant and tox neg, -Levofloxacin IVPB and Metronidazole IVPB, discharge per ID attending (total of 10 antibiotic days) IVF , surgery consulted with no intervention at this time. developed feves and resolved. Oral thrush: oral thrush history for two months, since smoking sesation treated with Nystatin. Infiltrate on CXR: no sings of infection, asymptomatic. patietn discharged vitals stable, no fever 24 hours, clinically stable. Microbiology 08/31/16 10:30 Colon Fluid Parasite Direct Smear - Final 08/31/16 10:30 Colon Fluid Ova and Parasite Macroscopic Exam - Final 08/31/16 10:30 Colon Fluid Parasite Concentrated Smear - Final 08/31/16 10:30 Colon Fluid Parasite Permanent Smear - Final 08/31/16 10:30 Colon Fluid Cryptosporidium Antigen - Final 08/31/16 10:30 Colon Fluid - Final 08/31/16 10:30 Colon Fluid Giardia Antigen (ANA) - Final 08/28/16 18:00 Blood - Peripheral Venous Blood Culture - Final NO GROWTH AFTER 5 DAYS INCUBATION 08/28/16 18:00 Blood - Peripheral Venous Blood Culture - Final NO GROWTH AFTER 5 DAYS INCUBATION 08/31/16 10:30 Colon Fluid Salmonella/Shigella Culture - Final NO GROWTH OF SALMONELLA OR SHIGELLA SPECIES OBTAINED 08/31/16 10:30 Colon Fluid Campylobacter Culture - Final NO GROWTH OF CAMPYLOBACTER SPECIES OBTAINED 08/30/16 12:00 Stool Clostridium difficile Antigen (ANA) - Final 08/30/16 12:00 Stool Clostridium difficile Toxin Assay - Final 08/29/16 09:40 Urine - Urine Clean Catch Urine Culture - Final NO GROWTH OBTAINED 08/31/16 10:30 Colon Fluid Yersinia Culture - Final NO GROWTH OF YERSINIA SPECIES OBTAINED 08/31/16 10:30 Colon Fluid Vibrio Culture - Final NO GROWTH OF VIBRIO SPECIES OBTAINED 08/31/16 10:30 Colon Fluid Escherichia coli 0157 Culture - Final NO GROWTH OF E COLI 0157 OBTAINED Minutes to complete discharge: 35 <Giovana Collazo - Last Filed: 09/29/16 21:40> Discharge Summary - Home Medications Comprehensive Discharge Medication List: Ambulatory Orders Levofloxacin 750 mg PO DAILY #6 tablet 09/01/16 Metronidazole [Flagyl -] 500 mg PO TID #18 tablet 09/01/16 Nystatin Oral Suspension - [Nystatin Oral Susp 307693 Units/5 ML -] 500,000 units PO Q6H #28 cup 09/01/16 <Augustine Alcala - Last Filed: 09/01/16 18:40> Reason For Visit: VOLVULUS OF ASCENDING COLON Current Active Problems Abnormal CT scan, colon (Acute) Enterocolitis (Acute) Ischemic necrosis of large intestine (Acute) Volvulus of ascending colon (Acute) - Home Medications Comprehensive Discharge Medication List: Ambulatory Orders Levofloxacin 750 mg PO DAILY #4 tablet 09/01/16 Metronidazole [Flagyl -] 500 mg PO TID #12 tablet 09/01/16 Nystatin Oral Suspension - [Nystatin Oral Susp 959708 Units/5 ML -] 500,000 units PO Q6H #28 cup 09/01/16 <Giovana Collazo - Last Filed: 09/29/16 21:40> Condition: Stable - Instructions Diet, Activity, Other Instructions: You are being discharged home. Please call and follow up with your primary care provider Dr. Elvia Ledesma, I have made you an appointment on at 10:15 am to assess your health. I attempted to call your Dr. Elvia Ledesma to discuss your hospital stay, I left a message and contact information with her assistant spa director Antonia Bailey, she will call me back to discuss your case. Please call and follow up with Dr. Garvey or any GI doctor of your choice to follow up labs and imaging. And have a plan for your treatment. Please take your antibiotics as prescribed for another 6 days. Please take over the counter Tylenol as directed for pain. Please reports to the ER or the nearest ER if you have any persistent and worsening symptoms, chest pain, palpitation, fevers, chills, night sweats, Nausea, Vomiting, severe headache dizziness or loss of consciousness. It was very nice to meet you and Im glad you are feeling better Thank you Dr. Giovana Collazo Referrals: Elvia Ledesma [Primary Care Provider] - 09/03/16 10:15 am Disposition: HOME This patient is new to me today: No Emergency Visit: Yes ED Registration Date: 08/28/16 Care time: The patient presented to the Emergency Department on the above date and was hospitalized for further evaluation of their emergent condition. Critical Care patient: No - Discharge Referral Referred to [facility] No <Giovana Collazo - Last Filed: 09/29/16 21:40>
[2016-09-01 14:58] VITALS: TEMP 98.1
[2016-09-04 00:09] LABS: C-ANCA <1:20 titer (Neg:<1:20); MYELOPEROXIDASE ANTIBODY <9.0 U/mL (0.0-9.0); P-ANCA <1:20 titer (Neg:<1:20); PROTEINASE-3 ANTIBODY <3.5 U/mL (0.0-3.5)
== END 2016-09-01 14:08 | disposition home or self-care (01) | DRG 394 ==
LOC: JER 03:38 → JERBED 08:18 → J5S 13:45
PROVIDERS: ADMIT Internal Medicine; ATTEND Internal Medicine
PROC: 0DBL8ZX Excision of Transverse Colon, Via Natural or Artificial Opening Endoscopic, Diagnostic (ICD-10-PCS; 2016-08-31)
PROC: 0DBH8ZX Excision of Cecum, Via Natural or Artificial Opening Endoscopic, Diagnostic (ICD-10-PCS; 2016-08-31)
PROC: 0DBK8ZX Excision of Ascending Colon, Via Natural or Artificial Opening Endoscopic, Diagnostic (ICD-10-PCS; 2016-08-31)
PROC: 0DBP8ZX Excision of Rectum, Via Natural or Artificial Opening Endoscopic, Diagnostic (ICD-10-PCS; principal; 2016-08-31 10:00)
DX: K55.9 Vascular disorder of intestine, unspecified (principal); K63.3 Ulcer of intestine; I51.7 Cardiomegaly; F17.210 Nicotine dependence, cigarettes, uncomplicated; K52.9 Noninfective gastroenteritis and colitis, unspecified; K57.30 Diverticulosis of large intestine without perforation or abscess without bleeding; K62.1 Rectal polyp; D12.3 Benign neoplasm of transverse colon; K12.0 Recurrent oral aphthae; K13.29 Other disturbances of oral epithelium, including tongue
CPT/HCPCS: 36415; 74020-TC; 74174-TC; 74177-TC; 80048; 80053; 81003; 81015; 82150; 83520; 83605; 83690; 85025; 85027; 85610; 86038; 86140; 86256; 86671; 86850; 86900; 86901; 87040; 87045; 87046; 87086; 87177; 87207; 87209; 87324; 87328; 87329; 87389; 87449; 88305-TC; 93005; 93010; 99283-25